=== PATIENT | female | born 1985 | race Caucasian/White ===

== ENCOUNTER 2022-02-17 20:38 | Observation (INO) | payer OTHER ==
[2022-02-17] MEDS ORDERED: SODIUM CHLORIDE 0.9% 1,000 ML IV STA (21:34)
--- NOTE | 2022-02-17 21:34 | ED ---
General Adult HPI - General Chief complaint: Headache Stated complaint: Blurred vision,Headache Time Seen by Provider: 02/17/22 21:23 Source: patient Mode of arrival: ambulatory - History of Present Illness Initial comments: Birdie is a 36 yo F with history of an unprovoked DVT 2 years ago. Patient presents the ER today with concern of strokelike symptoms. Patient reports that around noon today she didn't feel her vision closing that she lost her peripheral vision she was sitting down scrolling Facebook when she began to feel she could understand what she was supposed to be reading. She tried to explain it to her but was having some trouble with word finding. She forgot the word for the sport [employer] which is something that her and her play every weekend. She felt like she had numbness in her right hand and the right side of her face. After that she developed a little bit of a headache in the left side of her head, she took some aspirin the headache seemed to improve. - Related Data Allergies Allergy/AdvReac Type Severity Reaction Status Date / Time No Known Allergies Allergy Verified 02/17/22 21:20 Review of Systems ROS Statement: Those systems with pertinent positive or pertinent negative responses have been documented in the HPI. ROS Other: All systems not noted in ROS Statement are negative. Past Medical History Additional Past Medical History / Comment(s): hx of blood clot right lower leg. History of Any Multi-Drug Resistant Organisms: None Reported Past Surgical History: No Surgical Hx Reported Past Psychological History: Depression Smoking Status: Never smoker Past Alcohol Use History: None Reported Past Drug Use History: None Reported General Exam - General Exam Comments Initial Comments: Physical Exam GENERAL: Patient is well-developed and well-nourished. Patient is nontoxic and well-hydrated and is in no distress. HENT: Normocephalic, Atraumatic. EYES: PERRL, EOMI PULMONARY: Unlabored respirations. No audible rales rhonchi or wheezing was noted. CARDIOVASCULAR: There is a regular rate and rhythm without any murmurs gallops or rubs. ABDOMEN: Soft and nontender with normal bowel sounds. SKIN: Skin is clear with no lesions or rashes and otherwise unremarkable. : Deferred NEUROLOGIC: CN II-XII grossly intact No weakness in extremities Patient is alert and oriented x3. Moving all extremities spontaneously MUSCULOSKELETAL: Normal extremities with adequate strength and full range of motion. No lower extremity swelling or edema. No calf tenderness. PSYCHIATRIC: Normal psychiatric evaluation. Course Vital Signs 02/17/22 21:15 Temperature 98.3 F Pulse Rate 91 Respiratory 18 Rate Blood Pressure 146/87 O2 Sat by Pulse 99 Oximetry EKG Findings - EKG Comments: EKG Findings:: EKG was obtained as part of the stroke workup, EKG obtained at 2233 rate 64 rhythm sinus normal axis normal intervals no acute ST elevations or depressions no evidence of ischemia or infarction or pathologic arrhythmia Medical Decision Making - Medical Decision Making Patient was seen and evaluated, history is obtained from patient, patient with TIA like symptoms, left-sided headache, right-sided facial numbness, right hand numbness, were finding difficulty Symptoms are resolved prior to arrival CT CTA are unremarkable Patient will be admitted for TIA workup and evaluation by neurology - Lab Data Result diagrams: 02/17/22 21:53 Lab Results 02/17/22 02/17/22 Range/Units 21:53 21:53 WBC 8.4 (3.8-10.6) k/uL RBC 4.83 (3.80-5.40) m/uL Hgb 14.0 (11.4-16.0) gm/dL Hct 43.2 (34.0-46.0) % MCV 89.5 (80.0-100.0) fL MCH 29.1 (25.0-35.0) pg MCHC 32.5 (31.0-37.0) g/dL RDW 12.7 (11.5-15.5) % Plt Count 245 (150-450) k/uL MPV 8.3 Neutrophils % 57 % Lymphocytes % 34 % Monocytes % 5 % Eosinophils % 2 % Basophils % 1 % Neutrophils # 4.8 (1.3-7.7) k/uL Lymphocytes # 2.9 (1.0-4.8) k/uL Monocytes # 0.4 (0-1.0) k/uL Eosinophils # 0.1 (0-0.7) k/uL Basophils # 0.1 (0-0.2) k/uL PT 10.1 (9.0-12.0) sec INR 0.9 (<1.2) APTT 23.8 (22.0-30.0) sec Disposition Clinical Impression: TIA (transient ischemic attack) Disposition: ADMITTED IP TO THIS HOSP Condition: Stable Referrals: None,Stated [Primary Care Provider] - 1-2 days
[2022-02-17 22:01] LABS: Basophils # (A) 0.1 k/uL (0-0.2); Basophils % (A) 1 %; Eosinophils # (A) 0.1 k/uL (0-0.7); Eosinophils % (A) 2 %; HCT 43.2 % (34.0-46.0); Lymphocytes # (A) 2.9 k/uL (1.0-4.8); Lymphocytes % (A) 34 %; MCH 29.1 pg (25.0-35.0); MCHC 32.5 g/dL (31.0-37.0); MCV 89.5 fL (80.0-100.0); Mean Platelet Volume 8.3; Monocytes # (A) 0.4 k/uL (0-1.0); Monocytes % (A) 5 %; Neutrophils # (A) 4.8 k/uL (1.3-7.7); Neutrophils % (A) 57 %; Platelet Count 245 k/uL (150-450); RBC 4.83 m/uL (3.80-5.40); RDW 12.7 % (11.5-15.5); WBC 8.4 k/uL (3.8-10.6)
[2022-02-17 22:26] LABS: INR 0.9 (<1.2); Partial Thromboplastin Time 23.8 sec (22.0-30.0); Prothrombin Time 10.1 sec (9.0-12.0)
--- NOTE | 2022-02-17 22:27 | CT ---
EXAMINATION TYPE: CT brain wo con DATE OF EXAM: 02/17/2022 COMPARISON: None HISTORY: headache CT DLP: 1058 mGycm Automated exposure control for dose reduction was used. Ventricles have normal size. There is no mass effect or midline shift. No sign of intracranial hemorr ruthie. Calvarium is intact. There is normal aeration of the mastoid sinuses. IMPRESSION: Normal unenhanced head CT scan.
--- NOTE | 2022-02-17 22:28 | XR ---
EXAMINATION TYPE: XR chest 2V DATE OF EXAM: 02/17/2022 COMPARISON: NONE HISTORY: Altered mental status TECHNIQUE: 2 views FINDINGS: Heart and mediastinum are normal. Lungs are clear. Diaphragm is normal. Bony thorax appears normal. IMPRESSION: Normal chest.
--- NOTE | 2022-02-17 22:41 | CT ---
EXAMINATION TYPE: CT angio head neck DATE OF EXAM: 02/17/2022 COMPARISON: None HISTORY: ams CT DLP: 540.2 mGycm Automated exposure control for dose reduction was used. CONTRAST: Performed with IV Contrast, patient injected with 65 mL of Isovue 370. Images obtained from the aortic arch to the vertex of the brain with IV contrast. There are Three-D postprocessed images. There is normal branching pattern of the great vessels on the aortic arch. There is bilateral arteria l flow in the subclavian arteries. There is arterial flow in the common internal and external carotid arteries bilaterally. There is arterial flow in both vertebral arteries. There is arterial flow in t he vertebral basilar artery system. There is wide patency of the carotid artery bifurcations. No evid ence of stenosis. No evidence of carotid or vertebral artery aneurysm or dissection. There is arterial flow in the anterior middle and posterior cerebral arteries. No mass effect. No jose dence of intracranial aneurysm or neovascularity. No evidence of intracranial arterial stenosis. Ther e is normal enhancement of the venous sinuses. IMPRESSION: Negative CT angiogram of the brain. Negative CT angiogram of the neck..
--- NOTE | 2022-02-17 23:23 | P.HPIM ---
History of Present Illness H&P Date: 02/17/22 Chief Complaint: Blurred vision This is a 36-year-old white female who was on Facebook earlier today 1 she noted that her vision was different. She had partial vision loss associated with blurriness. She denies dizziness or loss of consciousness. She has been complaining of intermittent headaches lately. She denies subjective fever or chills. She was forgetful after the event but currently she is back to baseline. There was no reported nausea or vomiting. No reported fever. This has never happened to her before. She denies history of migraines. At the time of examination patient is in bed, she does not appear to be in distress. Patient's is at bedside. Review of Systems 10 systems reviewed, pertinent positive and negative findings as in HPI. No chest pain, no nausea or vomiting Past Medical History Additional Past Medical History / Comment(s): hx of blood clot right lower leg. History of Any Multi-Drug Resistant Organisms: None Reported Past Surgical History: No Surgical Hx Reported Past Psychological History: Depression Smoking Status: Never smoker Past Alcohol Use History: None Reported Past Drug Use History: None Reported Medications and Allergies Allergies Allergy/AdvReac Type Severity Reaction Status Date / Time No Known Allergies Allergy Verified 02/17/22 21:20 Physical Exam Vitals: Vital Signs Temp Pulse Resp BP Pulse Ox 02/17/22 21:15 98.3 F 91 18 146/87 99 Intake and Output 02/17/22 02/17/22 02/18/22 14:59 22:59 06:59 Other: Weight 83.461 kg Constitutional: No acute distress, conversant, pleasant Eyes: Anicteric sclerae, moist conjunctiva, no lid-lag, PERRLA ENMT: NC/AT,Oropharynx clear, no erythema, exudates Neck:Supple, FROM, no masses, or JVD, No carotid bruits; No thyromegaly Lungs: Clear to auscultation, Clear to percussion, Normal respiratory effort, no accessory muscle use Cardiovascular: Heart regular in rate and rhythm, No murmurs, gallops, or rubs no peripheral edema Abdominal: Soft Nontender, non distended, no guarding, no rebound or rigidity, Normoactive bowel sounds No hepatomegaly, No splenomegaly, No palpable mass No abdominal wall hernia noted Skin: Normal temperature, tone, texture, turgor, No induration No subcutaneous nodules, No rash, lesions, No ulcers Extremities:No digital cyanosis No clubbing, Pedal pulses intact and symmetrical Radial pulses intact and symmetrical Normal gait and station, No calf tenderness Psychiatric: Alert and oriented to person, place and time, Appropriate affect Intact judgement Neuro: Muscles Strength 5/5 in all 4 extremities, Sensation to light touch grossly present throughout, Cranial nerves II-XII grossly intact. No focal sensory deficits Results CBC & Chem 7: 02/17/22 21:53 Assessment and Plan Plan: 1. Left sided transient blade revision and visual disturbances of unknown significance possibly related to migraine: Supportive care, brain CT/CTA negative for acute findings. Neurology consultation. 2. History of DVT in the past: Not on anticoagulant admission. 3. Obesity: BMI 33.7 4. Tobacco abuse/dependence without evidence of withdrawal: Nicotine patch as indicated. Observation Disposition: Home in 1-2 days.
[2022-02-17] MEDS ORDERED: NALOXONE 0.4 MG/ML 1 ML VIAL IV PRN (23:27)
[2022-02-18 00:03] LABS: ALT 18 U/L (4-34); AST 22 U/L (14-36); African American GFR (CKD) >90 (>60 ml/min/1.73 sqM); Albumin 4.1 g/dL (3.5-5.0); Alkaline Phosphatase 97 U/L (38-126); Anion Gap 7 mmol/L; Blood Urea Nitrogen 14 mg/dL (7-17); Calcium 9.4 mg/dL (8.4-10.2); Carbon Dioxide 26 mmol/L (22-30); Chloride 107 mmol/L (98-107); Glucose 99 mg/dL (74-99); Non-African American GFR(CKD) >90 (>60 ml/min/1.73 sqM); Potassium 3.6 mmol/L (3.5-5.1); Sodium 140 mmol/L (137-145); Total Bilirubin 0.4 mg/dL (0.2-1.3); Total Protein 6.7 g/dL (6.3-8.2)
--- NOTE | 2022-02-18 11:29 | P.CNNES ---
History of Present Illness Consult date: 02/18/22 Requesting physician: Randa Farnsworth Reason for Consult: TIA symptoms History of Present Illness: This is a 36-year-old right-handed woman with history of DVT (left leg) about two years ago, tobacco use who presented emergency department because of visual changes, difficulty getting words out and numbness right side. It seems that yesterday, patient stated that the at 12 PM she noticed that she's having visual defect over the right lateral field and the episode lasted between 10-15 minutes. Then after that she had an episode of difficulty reading while she was a looking at [employer] . And the episode lasted also couple minutes and she noticed numbness over right side of the lips as well as face saw him in the right upper extremity also resolved entire episode that that she had the change was between 12 and the afternoon yesterday to 1:30 in afternoon. Afterwards she noticed that she's having headache over the left occipital region and initially as she felt was probably 7 and felt was that more nagging pain she had some mild photophobia but denies any photophobia and nausea or vomiting. She currently states the headache is 2/10. She denies any history of migraines in the past. She denies of any stroke or TIA in the past. She smokes about 3-5 cigarettes a day and in the past used to smoke 1 pack a day at. She denies of any illicit drug use or alcohol use. She uses marijuana as recreational. She did have a history of left DVT about 2 years ago but she was not on any blood thinners and did not follow up as an outpatient for further investigation. She denied being on any blood thinners, antiplatelet the or any statin. In the past was not on any control pills for her DVT and did not sit prolonged position leading to DVT. Denies any hypercoagulable the in the family. There is questionable mother having stroke. Denies any family history of multiple sclerosis. Of note she wakes up and she has like numbness in the wrist-hand region and she has to shake her hands. Some other workup in our facility consisted of: CBC with differential and chemistry panel is unremarkable. PT, PTT and INR is within normal limits. CT of the head is reported as normal on and has had computed tomography scan. CT angiography of the head and neck was reported as negative EKG is reported as sinus rhythm with sinus arrhythmia. Normal EKG. Review of Systems Review of system: The 12 point system was reviewed and apparent positive and negative per HPI. Past Medical History Additional Past Medical History / Comment(s): hx of blood clot right lower leg. History of Any Multi-Drug Resistant Organisms: None Reported Past Surgical History: No Surgical Hx Reported Past Anesthesia/Blood Transfusion Reactions: No Reported Reaction Past Psychological History: Depression Smoking Status: Current some day smoker Past Alcohol Use History: None Reported Past Drug Use History: None Reported Medications and Allergies Allergies Allergy/AdvReac Type Severity Reaction Status Date / Time No Known Allergies Allergy Verified 02/17/22 21:20 Physical Examination - Vital Signs Vital Signs: Vital Signs Temp Pulse Pulse Resp BP BP Pulse Ox 02/18/22 07:00 98 F 61 18 105/70 100 02/18/22 02:00 98.1 F 77 17 98/64 100 02/17/22 23:56 72 16 111/72 02/17/22 21:15 98.3 F 91 18 146/87 99 Intake and Output 02/17/22 02/18/22 02/18/22 22:59 06:59 14:59 Other: # Voids 1 Weight 83.461 kg 83.461 kg GENERAL: The patient is lying in bed and is not in acute distress. CHEST: The heart rate is regular rate rhythm. No murmurs to auscultation. LUNG: Clear to auscultation bilaterally no wheezing noted throughout. Not la bored breathing. ABDOMEN/GI: Bowel sounds present in all 4 quadrants. No tenderness to palpation throughout. NEUROLOGICAL: Higher mental function: The patient is awake, alert, oriented to self, place and time. Patient is following commands. No aphasia and no neglect. Cranial nerves: The pupils are round, equal and reactive to light and accommodation. Visual perera are full to confrontation throughout. Extraocular movement is intact no nystagmus is noted. Facial sensation is normal to touch throughout. The facial strength is normal throughout. Hearing is normal bilaterally to hand rub. Tongue is midline and moved [id number] without any difficulty. No dysarthria is noted. Shoulder shrug is normal bilaterally. Motor:Gait is normal. The strength is 5 over 5 throughout. Normal tone and bulk. Cerebellum: Normal finger to nose heel to teixeira bilaterally. Sensation: Sensation is normal to touch throughout. Reflexes (right/left): 3+ brachioradialis and patellar bilaterally. Otherwise 2+throughout. Plantars are downgoing bilaterally. Results - Laboratory Findings CBC and BMP: 02/17/22 21:53 02/17/22 21:53 Assessment and Plan Assessment: Transient episode of visual change, difficulty to comprehend when she was reading, right face/upper extremity numbness: Seems likely acute Transient Ischemic Attack (especially with episode of left DVT and tobacco use). Rule out any underlying hypercoagulable/genetic History of DVT Possibly underlying carpal tunnel bilaterally Tobacco use Plan: I placed the patient on aspirin 81 mg and plavix 75mg daily. Vision to be on dual antiplatelets for 21 days and after 21 days to be only on aspirin for secondary stroke prophylaxis. Started the patient on Lipitor 40 mg daily at bedtime for secondary stroke prophylaxis. Ordered 2-D echo with bubble study. Recommend MRI of the brain as well as cervical spine with and without. Reason for cervical spine is patient has hyperreflexia to rule out any demyelinating disease which seems unlikely from the history. I ordered hemoglobin A1c, vitamin B12, folate, lipid panel I highly recommend hypercoagulable workup for young stroke as an outpatient. Recommend the patient to follow up with roofer as an outpatient. Placed the patient on cardiac monitoring Every 4 hours neuro checks Patient was counseled on tobacco cessation for 3 minutes. We'll defer the rest of the medical management to primary team For DVT prophylaxis start the patient on subcu heparin 5000 units every 8 hours Recommend the patient to follow-up with a neurologist as an outpatient within 1- 2 weeks The plan was discussed with the patient and her primary team. Thank you for the consultation. Dr. Wright will start neurological service tomorrow AM. Cheko Flores M.D. Neuro-hospital Time with Patient: Greater than 30
[2022-02-18 11:56] LABS: Basophils % (A) 1 %; Eosinophils # (A) 0.1 k/uL (0-0.7); Eosinophils % (A) 2 %; HCT 42.1 % (34.0-46.0); HGB 13.9 gm/dL (11.4-16.0); Lymphocytes # (A) 2.3 k/uL (1.0-4.8); Lymphocytes % (A) 42 %; MCH 29.7 pg (25.0-35.0); Mean Platelet Volume 8.3; Monocytes # (A) 0.3 k/uL (0-1.0); Monocytes % (A) 5 %; Neutrophils # (A) 2.7 k/uL (1.3-7.7); Neutrophils % (A) 49 %; Platelet Count 257 k/uL (150-450); RBC 4.68 m/uL (3.80-5.40); RDW 13.3 % (11.5-15.5); WBC 5.6 k/uL (3.8-10.6)
[2022-02-18 12:03] LABS: ALT 17 U/L (4-34); AST 19 U/L (14-36); African American GFR (CKD) >90 (>60 ml/min/1.73 sqM); Albumin/Globulin Ratio 1.5; Alkaline Phosphatase 89 U/L (38-126); Anion Gap 9 mmol/L; Blood Urea Nitrogen 9 mg/dL (7-17); Calcium 8.8 mg/dL (8.4-10.2); Carbon Dioxide 22 mmol/L (22-30); Chloride 107 mmol/L (98-107); Globulin 2.6 g/dL; Glucose 99 mg/dL (74-99); Non-African American GFR(CKD) >90 (>60 ml/min/1.73 sqM); Potassium 4.3 mmol/L (3.5-5.1); Sodium 138 mmol/L (137-145); Total Bilirubin 0.5 mg/dL (0.2-1.3); Total Protein 6.6 g/dL (6.3-8.2)
--- NOTE | 2022-02-18 12:05 | P.PN ---
Subjective Progress Note Date: 02/18/22 Hospital course: Patient is a 36-year-old female with a past medical history of DVT not on anticoagulation. She presented to the emergency department on 02/17/22 secondary to reports of having a loss of right-sided peripheral vision accompanied by slight blurred vision. Patient reports she went to the restroom and removed her contact facing some drops in her eye and vision resolved after approximately 10 minutes. Patient reports during this time she also noted having a headache to left occipital region and short while later began feeling right hand tingling and numbness and was on Facebook and suddenly could not read or make sense of what she was reading. Patient reports initial symptoms presented around 12 PM and were completely resolved by 1:30 PM with the exception of left is a little headache which remains as reported dull pain. Patient currently back to baseline again with the exception of the headache. In the emergency department, patient underwent full evaluation. CT head was negative for acute process. CTA head and neck were also negative. CBC, coags, and CMP were all unremarkable. Troponin also negative at less than 0.012. An EKG was completed revealing normal sinus rhythm at 64 bpm with no noted T-wave or ST abnormalities showing no signs of acute ischemia. The patient was admitted under our services for overnight observation and neurology was consulted. Patient remains at baseline and still reports dull occipital headache with no other complaints at this time. No neurological deficits noted at this time. Physical exam: Vital signs reviewed and stable. General: Nontoxic, no distress and appears stated age. Derm: Skin warm and dry, normal coloration for ethnicity. Head: Atraumatic, normocephalic and symmetric. Eyes: EOMs intact, no lid lag, and anicteric sclera Mouth: no lip lesions, mucus membranes moist Cardiovascular: regular rate and rhythm with normal S1S2, no murmur, positive posterior tibial pulses bilaterally, and cap refill < 2 seconds. Lungs: Respirations even, regular, and unlabored on room air. Lungs CTA bilaterally, no rhonchi, no rales, no wheezing, and no accessory muscle usage. Abdominal: soft, nontender to palpation, no guarding, no appreciable organomegaly Ext: ROM intact. No gross muscle atrophy, no edema, no contractures Neuro: Speech clear, face symmetrical and CN II-XII grossly intact with no noted focal neuro deficits Psych: Alert and oriented to person, place, time, and situation. Appropriate and pleasant affect. Assessment and Plan of Care: Transient vision changes, with reports of right-sided peripheral vision loss accompanied by blurred vision. Rule out TIA versus atypical migraine. -CT head negative -CTA head and neck negative -MRI to be completed -Neurology following, started patient on aspirin and Plavix -Urine hCG to be completed prior to initiating Plavix -Neuro checks to continue every 4 hours. History of a DVT -Patient reports being diagnosed with left lower extremity DVT 2 years ago, not on anticoagulant -DVT prophylaxis with heparin Nicotine dependence -Recommend smoking cessation. CODE STATUS: Full code DVT prophylaxis: heparin Discussed with: patient, RN, and neurology Anticipated discharge date: likely tomorrow, pending MRI and echo to be c ompleted Anticipated discharge place: home A total of 35 minutes was spent on the care of this complex patient more than 50% of the time was spent in counseling and care coordination. I reviewed the documentation as provided by the KRISTINA above, who is the original author of this note. I agree with the documented assessment and plan, with the following changes: none Objective - Vital Signs Vital signs: Vital Signs Temp 98.1 F 02/18/22 02:00 Pulse 77 02/18/22 02:00 Resp 17 02/18/22 02:00 BP 98/64 02/18/22 02:00 Pulse Ox 100 02/18/22 02:00 FiO2 Intake & Output 02/17/22 02/18/22 02/18/22 18:59 06:59 18:59 Weight 83.461 kg Other: # Voids 1 - Labs CBC & Chem 7: 02/19/22 05:34 02/19/22 05:34
[2022-02-18] MEDS: ASPIRIN 81 MG PO SCH (12:33)
[2022-02-18] MEDS: HEPARIN SODIUM,PORCINE/PF 5,000 UNIT/0.5 ML SYRINGE SQ SCH ×2 (12:33→18:11)
[2022-02-18] MEDS: CLOPIDOGREL 75 MG TAB PO SCH (12:33)
[2022-02-18 17:52] LABS: LDL Cholesterol,Calculated 103.3 mg/dL (0.0-131.0); VLDL Calculation 18.88 mg/dL (5.00-40.00)
[2022-02-18] MEDS ORDERED: ATORVASTATIN 40 MG TAB PO SCH (21:00)
[2022-02-19] MEDS: HEPARIN SODIUM,PORCINE/PF 5,000 UNIT/0.5 ML SYRINGE SQ SCH ×2 (00:02→08:13)
[2022-02-19] MEDS: ASPIRIN 81 MG PO SCH (08:12)
[2022-02-19] MEDS: CLOPIDOGREL 75 MG TAB PO SCH (08:12)
[2022-02-19 08:58] LABS: Basophils # (A) 0.04 X 10*3/uL (0.00-0.10); Basophils % (A) 0.7 %; Eosinophils # (A) 0.13 X 10*3/uL (0.04-0.35); Eosinophils % (A) 2.2 %; HCT 39.3 % (37.2-46.3); HGB 12.7 g/dL (12.0-15.0); Immature Grans, Automated 0.2 %; Lymphocytes # (A) 2.84 X 10*3/uL (0.90-5.00); Lymphocytes % (A) 47.6 %; MCH 29.1 pg (27.0-32.0); MCHC 32.3 g/dL (32.0-37.0); MCV 90.1 fL (80.0-97.0); Mean Platelet Volume 11.3 fL (9.5-12.2); Monocytes # (A) 0.43 X 10*3/uL (0.20-1.00); Monocytes % (A) 7.2 %; NRBC Per 100 WBC 0 /100 WBCS (0.0-0.0); Neutrophils # (A) 2.52 X 10*3/uL (1.80-7.70); Neutrophils % (A) 42.1 %; Platelet Count 225 X 10*3/uL (140-440); RBC 4.36 X 10*6/uL (4.10-5.20); RDW 13.2 % (11.5-14.5); WBC 5.97 X 10*3/uL (4.50-10.00)
[2022-02-19 09:07] LABS: ALT 15 U/L (8-44); AST 11 U/L (13-35); African American GFR (CKD) 111.5 (60.0-200.0); Albumin 3.7 g/dL (3.8-4.9); Albumin/Globulin Ratio 1.85 (1.60-3.17); Alkaline Phosphatase 89 U/L (41-126); BUN/Creat Ratio 11.13 Ratio (12.00-20.00); Blood Urea Nitrogen 8.9 mg/dL (9.0-27.0); Calcium 8.7 mg/dL (8.7-10.3); Carbon Dioxide 23.8 mmol/L (20.0-27.5); Chloride 105 mmol/L (96-109); Glucose 96 mg/dL (70-110); Non-African American GFR(CKD) 96.2 (60.0-200.0); Sodium 138 mmol/L (135-145); Total Bilirubin <0.15 mg/dL (0.30-1.20); Total Protein 5.7 g/dL (6.2-8.2)
[2022-02-19 09:12] VITALS: BP 106/73; PULSE 63; RESP 18; TEMP 97.7
--- NOTE | 2022-02-19 10:06 | CA ---
Transthoracic Echo Report Name: Elias December Age: 36 Gender: F : 1985 Exam Date: 02/19/2022 08:05 Exam Location: [facility] Ht (in): 62 Wt (lb): 184 Ordering Physician: Cheko Flores MD Attending/Referring Phys: Rug Measurer Lacie Marina RDCS Procedure CPT: Indications: TIA. Do with bubble study Cardiac Hx: Hx of DVT, smoker Technical Quality: Fair Contrast 1: Agitated Saline Total Dose (mL): 8 Contrast 2: Total Dose (mL): MEASUREMENTS (Male / Female) Normal Values 2D ECHO LV Diastolic Diameter PLAX 4.3 cm 4.2 - 5.9 / 3.9 - 5.3 cm LV Systolic Diameter PLAX 2.7 cm IVS Diastolic Thickness 0.9 cm 0.6 - 1.0 / 0.6 - 0.9 cm LVPW Diastolic Thickness 1.1 cm 0.6 - 1.0 / 0.6 - 0.9 cm LV Relative Wall Thickness 0.5 RV Internal Dim ED PLAX 3.1 cm LA Systolic Diameter LX 3.0 cm 3.0 - 4.0 / 2.7 - 3.8 cm LA Volume 30.0 cm??? 18 - 58 / 22 - 52 cm??? M-MODE Aortic Root Diameter MM 2.5 cm MV E Point Septal Separation 0.2 cm AV Cusp Separation MM 1.6 cm DOPPLER AV Peak Velocity 137.5 cm/s AV Peak Gradient 7.6 mmHg MV Area PHT 4.3 cm??? Mitral E Point Velocity 129.5 cm/s Mitral A Point Velocity 52.9 cm/s Mitral E to A Ratio 2.4 MV Deceleration Time 175.5 ms MV E' Velocity 12.2 cm/s Mitral E to MV E' Ratio 10.6 TR Peak Velocity 228.5 cm/s TR Peak Gradient 20.9 mmHg Right Ventricular Systolic Press 25.9 mmHg FINDINGS Left Ventricle Left ventricular ejection fraction is estimated at 55-60 %. Left ventricular cavity size normal. Left ventricular wall thickness normal. Right Ventricle Normal right ventricular size. Right ventricular systolic pressure within normal limits. Right Atrium Normal right atrial size. Left Atrium Normal left atrial size. No evidence for an atrial septal defect. Negative saline bubbles study no shunt noted Mitral Valve Structurally normal mitral valve. No mitral stenosis, regurgitation or prolapse. Aortic Valve Trileaflet aortic valve. No aortic valve stenosis or regurgitation. Tricuspid Valve Mild tricuspid regurgitation. Pulmonic Valve Mild pulmonic regurgitation. Pericardium Normal pericardium. No pericardial effusion. Aorta Normal size aortic root and proximal ascending aorta. CONCLUSIONS Normal LV size and systolic function. No significant abnormality on the Doppler exam. No pericardial effusion Previewed by: Dr. Frank Vital MD (Electronically Signed) Final Date: 19 February 2022 10:06
--- NOTE | 2022-02-19 14:38 | P.DS ---
Providers Date of admission: 02/17/22 23:27 Expected date of discharge: 02/19/22 Attending physician: Mamadou Woods MD Consults: 02/17/22 23:29 Consult Physician Stat Consulting Provider: Cheko Flores Consult Reason/Comments: TIA symptoms Do you want consulting provider notified?: Yes, Notify in am Primary care physician: Stated None Hospital Course: Discharge Diagnosis: Transient vision changes, with reports of right-sided peripheral vision loss accompanied by blurred vision. Likely TIA versus complex migraine, patient unable to complete MRI at this time secondary to IUD placement. Patient was started on aspirin, Plavix, and atorvastatin and follow up outpatient with neurology. History of a DVT Nicotine dependence. Recommend smoking cessation. Hospital Course: Patient is a 36-year-old female with a past medical history of DVT not on anticoagulation. She presented to the emergency department on 02/17/22 secondary to reports of having a loss of right-sided peripheral vision accompanied by slight blurred vision. Patient reports she went to the restroom and removed her contact facing some drops in her eye and vision resolved after approximately 10 minutes. Patient reports during this time she also noted having a headache to left occipital region and short while later began feeling right hand tingling and numbness and was on Facebook and suddenly could not read or make sense of what she was reading. Patient reports initial symptoms presented around 12 PM and were completely resolved by 1:30 PM with the exception of left is a little headache which remains as reported dull pain. Patient currently back to baseline again with the exception of the headache. In the emergency department, patient underwent full evaluation. CT head was negative for acute process. CTA head and neck were also negative. CBC, coags, and CMP were all unremarkable. Troponin also negative at less than 0.012. An EKG was completed revealing normal sinus rhythm at 64 bpm with no noted T-wave or ST abnormalities showing no signs of acute ischemia. The patient was admitted under our services for observation and neurology was consulted. Patient underwent 2 night stay in the hospital and reports resolution of all previously reported neurological symptoms including her headache. Urine hCG was completed negative for . Patient started on aspirin, Plavix, and atorvastatin. Patient underwent an echocardiogram which revealed normal EF of 55-60% with no reported structural or valvular abnormalities. Lipid profile was unremarkable. Patient was scheduled for MRI, however patient forgot that she had an IUD and patient didn't realize she had an IUD and cannot complete MRI. Patient requesting discharge at this time. Medically patient is stable for discharge. Prescription sent for Plavix, aspirin, and atorvastatin started by neurology. Patient to follow up outpatient with neurologist in his office as discussed as TIA versus migraine versus demyelinating condition has not fully been ruled out secondary to inability to undergo MRI at this time. Physical exam: Vital signs reviewed and stable. General: Nontoxic, no distress and appears stated age. Derm: Skin warm and dry, normal coloration for ethnicity. Head: Atraumatic, normocephalic and symmetric. Eyes: EOMs intact, no lid lag, and anicteric sclera Mouth: no lip lesions, mucus membranes moist Cardiovascular: regular rate and rhythm with normal S1S2, no murmur, positive posterior tibial pulses bilaterally, and cap refill < 2 seconds. Lungs: Respirations even, regular, and unlabored on room air. Lungs CTA bilaterally, no rhonchi, no rales, no wheezing, and no accessory muscle usage. Abdominal: soft, nontender to palpation, no guarding, no appreciable organomegaly Ext: ROM intact. No gross muscle atrophy, no edema, no contractures Neuro: Speech clear, face symmetrical and CN II-XII grossly intact with no noted focal neuro deficits Psych: Alert and oriented to person, place, time, and situation. Appropriate and pleasant affect. A total of 31 minutes of time were spent preparing this complex discharge summary. Pt was discharged on 02/19/22 at 2:28 PM. I reviewed the documentation as provided by the KRISTINA above, who is the original author of this note. I agree with the documented assessment and plan, with the following changes: none Patient Condition at Discharge: Stable Plan - Discharge Summary Discharge Rx Participant: No New Discharge Prescriptions: New Aspirin 81 mg PO DAILY 30 Days #30 tab Atorvastatin [Lipitor] 40 mg PO HS 30 Days #30 tab Clopidogrel [Plavix] 75 mg PO DAILY 21 Days #21 tab Discharge Medication List Aspirin 81 mg PO DAILY 30 Days #30 tab 02/19/22 [Rx] Atorvastatin [Lipitor] 40 mg PO HS 30 Days #30 tab 02/19/22 [Rx] Clopidogrel [Plavix] 75 mg PO DAILY 21 Days #21 tab 02/19/22 [Rx] Follow up Appointment(s)/Referral(s): Kevin Flores DO [Doctor of Osteopathic Medicine] - 1 Week Benito Chu [STAFF PHYSICIAN] - 1 Week Patient Instructions/Handouts: Transient Ischemic Attack (DC) Activity/Diet/Wound Care/Special Instructions: Activity: As tolerated. Diet: Heart healthy and carb consistent diet. Avoid salts, or foods with hidden salts such as canned or boxed foods and frozen dinners. Extra salt makes your heart work harder and traps the fluid in your body for longer. Special Instructions: Take all of your medications as directed and remember to keep all of your doctor's appointments and follow-up as needed. As we discussed with you and is important to continue with aspirin and Plavix for the next 21 days and then you may stop Plavix and continue with aspirin until further instructed by her neurologist. He will need to follow-up with Dr. [facility] [id number] [place] [address] Recommend total smoking cessation. Thank you for allowing us to participate in your care, it was truly a pleasure h aving you for our patient!!! Discharge Disposition: HOME SELF-CARE
--- NOTE | 2022-02-20 10:30 | P.PN ---
Subjective Progress Note Date: 02/19/22 Patient was seen for a follow-up. Patient initially seen by Dr. Cheko Flores. Please refer to his note for details. Patient came with an episode of some visual disturbance, numbness of the right side of face, tongue and in the hand,. Also she could not read and had some word finding difficulty at that time. Symptoms resolved in 1.5 hours (from noon until 1:30 PM), but then she had a headache involving the left occipital region, that persisted for a day. The headache has just resolved. She feels fine now. Denies any personal or family history of migraines. She does have nonmedicated IUD. Patient has history of DVT in the left leg 2 years ago. Objective - Vital Signs Vital signs: Vital Signs Temp 97.7 F 02/19/22 07:00 Pulse 63 02/19/22 07:00 Resp 18 02/19/22 07:00 BP 106/73 02/19/22 07:00 Pulse Ox 100 02/19/22 07:00 FiO2 Intake & Output 02/18/22 02/19/22 02/19/22 18:59 06:59 18:59 Other: # Voids 2 1 - Exam Completely normal neurological examination. Mental status, speech and language functions, cranial nerves are normal. Muscle strength normal. - Labs CBC & Chem 7: 02/19/22 05:34 02/19/22 05:34 Labs: Abnormal Lab Results - Last 24 Hours (Table) 02/19/22 Range/Units 05:34 Anion Gap 9.20 L (10.00-18.00) mmol/L BUN 8.9 L (9.0-27.0) mg/dL BUN/Creatinine Ratio 11.13 L (12.00-20.00) Ratio Total Bilirubin <0.15 L (0.30-1.20) mg/dL AST 11 L (13-35) U/L Total Protein 5.7 L (6.2-8.2) g/dL Albumin 3.7 L (3.8-4.9) g/dL Assessment and Plan Assessment: Transient episode of visual change, difficulty to comprehend when she was reading, right face/upper extremity numbness: Symptoms lasted for about 1.5 hours followed by a left occipital headache. Differential diagnosis is between TIA versus complex migraine. History of DVT Possibly underlying carpal tunnel bilaterally Tobacco use Plan: * Dr. Cheko Flores has placed the patient on aspirin 81 mg and plavix 75mg daily. Patient will stay on dual antiplatelets for 21 days and after 21 days to be o nly on aspirin for secondary stroke prophylaxis. He also started the patient on Lipitor 40 mg daily at bedtime for secondary stroke prophylaxis. * 2-D echo with bubble study revealed normal left-ventricular size and systolic function. Negative saline bubble study, no shunt noted. Normal left atrial size. * MRI of the brain and cervical spine could not be performed because patient has IUD. This has to be done as an outpatient. Patient will follow up with Dr. Cheko Flores in his neurology office and arrange MRI as an outpatient. * Hemoglobin A1c 5.2 * Lipid panel with cholesterol 171, LDL 103, HDL 48 and triglycerides 94. * Vitamin B12 607, folate 13.5 and TSH 1.93, all normal. * Patient will follow up with hematology regarding hypercoagulable workup. * Recommend complete tobacco cessation. * Neurologically clear for discharge.
== END 2022-02-19 16:14 | disposition home or self-care (01) ==
LOC: EC 20:38 → 6NMEDSUR 23:27
PROVIDERS: ADMIT Internal Medicine; ATTEND Internal Medicine
DX: G43.809 Other migraine, not intractable, without status migrainosus (principal); H54.7 Unspecified visual loss; H53.8 Other visual disturbances; R29.818 Other symptoms and signs involving the nervous system; F17.210 Nicotine dependence, cigarettes, uncomplicated; E66.9 Obesity, unspecified; Z68.33 Body mass index [BMI] 33.0-33.9, adult; F32.A Depression, unspecified; Z71.6 Tobacco abuse counseling; Z71.3 Dietary counseling and surveillance; Z97.5 Presence of (intrauterine) contraceptive device; Z86.718 Personal history of other venous thrombosis and embolism
CPT/HCPCS: 99285; 96361; 96372 ×2; 96360; 36415; 93005; 93306; 80053 ×3; 80061; 84443; 82607; 82746; 84484; 85025 ×3; 85610; 85730; 81025; 83036; 71046; 70496; 70450; 70498; G0378 ×2; Q9967; J1644 ×2

== ENCOUNTER → 2022-04-05 | Outpatient (CLI) | payer OTHER | END | disposition home or self-care (01) | LOC: LABWHC1 12:49 | PROVIDERS: ATTEND Family Medicine | DX: M13.0 Polyarthritis, unspecified (principal) | CPT/HCPCS: 36415; 82550 ==

== ENCOUNTER 2022-06-03 13:50 | Emergency (ER) | payer OTHER ==
[2022-06-03 13:54] VITALS: TEMP 98
--- NOTE | 2022-06-03 14:23 | ED ---
General Adult HPI - General Chief complaint: Extremity Problem,Nontraumatic Stated complaint: Poss blood clot in thigh Time Seen by Provider: 06/03/22 14:00 Source: patient, RN notes reviewed, old records reviewed Mode of arrival: ambulatory Limitations: no limitations - History of Present Illness Initial comments: This is a 37-year-old female presents emergency Department with some inner thigh pain on the right and she feels as though there is a area is a little harder than the surrounding tissue and she is concerned she has a blood clot. Patient denies any redness of the leg patient denies any swelling to the leg per patient's any calf tenderness to light. Patient states at one point she did notice a little bit of pain running down her whole leg but that is no longer there. Patient denies any fever chills per patient denies any difficulty being short of breath palpitations or chest pain. - Related Data Previous Rx's Medication Instructions Recorded Aspirin 81 mg PO DAILY 30 Days #30 tab 02/19/22 Atorvastatin [Lipitor] 40 mg PO HS 30 Days #30 tab 02/19/22 Clopidogrel [Plavix] 75 mg PO DAILY 21 Days #21 tab 02/19/22 Allergies Allergy/AdvReac Type Severity Reaction Status Date / Time atorvastatin [From Lipitor] Allergy Unknown Verified 06/03/22 13:54 Review of Systems ROS Statement: Those systems with pertinent positive or pertinent negative responses have been documented in the HPI. ROS Other: All systems not noted in ROS Statement are negative. Past Medical History Additional Past Medical History / Comment(s): hx of blood clot right lower leg. History of Any Multi-Drug Resistant Organisms: None Reported Past Surgical History: No Surgical Hx Reported Past Anesthesia/Blood Transfusion Reactions: No Reported Reaction Past Psychological History: Depression Smoking Status: Current some day smoker Past Alcohol Use History: None Reported Past Drug Use History: None Reported General Exam - General Exam Comments Initial Comments: QGENERAL Patient is well-developed and well-nourished. Patient is in mild distress. EYES Patient's pupils are equal and round. Extraocular motion is intact SKIN Unremarkable NEURO The patient is alert and oriented 3 PYSCH Patient has normal interpersonal interactions. MUSCULOSKELETAL On the inner right thigh there is slight tenderness no redness no swelling and there does seem to be a small area of a little more firmness and the rest of the thigh. There is no swelling distal to this area there is no redness distal sensory is no calf tenderness. Limitations: no limitations Course Vital Signs 06/03/22 13:52 Temperature 98 F Pulse Rate 76 Respiratory 16 Rate Blood Pressure 121/74 O2 Sat by Pulse 98 Oximetry Medical Decision Making - Medical Decision Making Ultrasound of the leg showed no DVT. Disposition Clinical Impression: Muscle strain of left thigh Disposition: HOME SELF-CARE Condition: Good Instructions (If sedation given, give patient instructions): Muscle Strain (ED) Is patient prescribed a controlled substance at d/c from ED?: No Referrals: Benito Chu [Primary Care Provider] - 1-2 days Time of Disposition: 15:14
--- NOTE | 2022-06-03 15:03 | US ---
EXAMINATION TYPE: US venous doppler duplex LE RT DATE OF EXAM: 06/03/2022 2:09 PM COMPARISON: NONE CLINICAL HISTORY: Upper leg pain. SIDE PERFORMED: Right TECHNIQUE: The lower extremity deep venous system is examined utilizing real time linear array sonog tonja with graded compression, doppler sonography and color-flow sonography. VESSELS IMAGED: Common Femoral Vein Deep Femoral Vein Greater Saphenous Vein * Femoral Vein Popliteal Vein Small Saphenous Vein * Proximal Calf Veins (* superficial vessels) Right Leg: Negative for DVT The deep venous system of the right lower extremity from the common femoral vein to the proximal calf veins is patent and compressible with augmentable flow throughout and there is no evidence of DVT. IMPRESSION: No evidence of DVT of the right lower extremity as described above.
[2022-06-03 17:45] VITALS: BP 114/74; PULSE 72; RESP 18
== END 2022-06-03 15:20 | disposition home or self-care (01) ==
LOC: EC 13:50
DX: S76.912A Strain of unspecified muscles, fascia and tendons at thigh level, left thigh, initial encounter (principal); F17.200 Nicotine dependence, unspecified, uncomplicated; Z88.8 Allergy status to other drugs, medicaments and biological substances; X58.XXXA Exposure to other specified factors, initial encounter
CPT/HCPCS: 99283

== ENCOUNTER 2022-11-26 15:38 | Emergency (ER) | payer OTHER ==
--- NOTE | 2022-11-26 15:49 | ED ---
General Adult HPI - General Stated complaint: low heart rate Time Seen by Provider: 11/26/22 15:42 Source: RN notes reviewed - History of Present Illness Initial comments: 37-year-old female with no significant past medical history presents to the emergency department with a chief complaint of palpitations. Patient rep orts that she was at rest when she checked her abdomen watch and noticed that her heart rate was in the 40s. Shortly increased to heart rates of 160s. Patient denies personal history of atrial fibrillation. She denies any dizziness, lightheadedness, shortness of breath, chest pain with this. She did not take anything for her symptoms. She reports that the symptoms have on their own. She denies a personal cardiac or pulmonary history. - Related Data Previous Rx's Medication Instructions Recorded Aspirin 81 mg PO DAILY 30 Days #30 tab 02/19/22 Atorvastatin [Lipitor] 40 mg PO HS 30 Days #30 tab 02/19/22 Clopidogrel [Plavix] 75 mg PO DAILY 21 Days #21 tab 02/19/22 Allergies Allergy/AdvReac Type Severity Reaction Status Date / Time atorvastatin [From Lipitor] Allergy Unknown Verified 11/26/22 15:49 Review of Systems ROS Statement: Those systems with pertinent positive or pertinent negative responses have been documented in the HPI. ROS Other: All systems not noted in ROS Statement are negative. Past Medical History Additional Past Medical History / Comment(s): hx of blood clot right lower leg. History of Any Multi-Drug Resistant Organisms: None Reported Past Surgical History: No Surgical Hx Reported Past Anesthesia/Blood Transfusion Reactions: No Reported Reaction Past Psychological History: Depression Smoking Status: Current some day smoker Past Alcohol Use History: None Reported Past Drug Use History: None Reported General Exam - General Exam Comments Initial Comments: Visual Physical Exam Vital signs reviewed General: Well-appearing, nontoxic, no acute distress. Head: Normocephalic, atraumatic Eyes: PERRLA, EOMI ENT: Airway patent Chest: Nonlabored breathing Skin: No visual rash, normal skin tone Neuro: Alert and oriented 3 Musculoskeletal: No gross abnormalities General appearance: alert, in no apparent distress Head exam: Present: atraumatic, normocephalic, normal inspection Eye exam: Present: normal appearance, PERRL, EOMI. Absent: scleral icterus, conjunctival injection, periorbital swelling ENT exam: Present: normal exam, mucous membranes moist Neck exam: Present: normal inspection. Absent: tenderness, meningismus, lymphadenopathy Respiratory exam: Present: normal lung sounds bilaterally. Absent: respiratory distress, wheezes, rales, rhonchi, stridor Cardiovascular Exam: Present: regular rate, normal rhythm, normal heart sounds. Absent: systolic murmur, diastolic murmur, rubs, gallop, clicks GI/Abdominal exam: Present: soft, normal bowel sounds. Absent: distended, tenderness, guarding, rebound, rigid Extremities exam: Present: normal inspection, full ROM, normal capillary refill. Absent: tenderness, pedal edema, joint swelling, calf tenderness Back exam: Present: normal inspection Neurological exam: Present: alert, oriented X3, CN II-XII intact Psychiatric exam: Present: normal affect, normal mood Skin exam: Present: warm, dry, intact, normal color. Absent: rash Course Vital Signs 11/26/22 11/26/22 15:45 19:35 Temperature 98.1 F Pulse Rate 98 77 Respiratory 18 18 Rate Blood Pressure 145/84 122/84 O2 Sat by Pulse 98 100 Oximetry EKG Findings - EKG Comments: EKG Findings:: I interpreted the following: EKG performed at 15:52. Rate 94 bpm and normal sinus rhythm. MN interval 144, QRS duration 86, QT/QTc 334/386 Medical Decision Making - Medical Decision Making Was pt. sent in by a medical professional or institution ([facility], [facility], urgent care, hospital, or fci...) When possible be specific @ -[No] Did you speak to anyone other than the patient for history (EMS, parent, family, police, friend...)? What history was obtained from this source @ -[No] Did you review nursing and triage notes (agree or disagree)? Why? @ -[I reviewed and agree with nursing and triage notes] Were old charts reviewed (outside hosp., previous admission, EMS record, old EKG, old radiological studies, urgent care reports/EKG's, fci records)? Report findings @ -[No old charts were reviewed] Differential Diagnosis (chest pain, altered mental status, abdominal pain women, abdominal pain men, vaginal bleeding, weakness, fever, dyspnea, syncope, headache, dizziness, GI bleed, back pain, seizure, CVA, palpatations, mental health, musculoskeletal)? @ -[not applicable] EKG interpreted by me (3pts min.). @ -[As above] X-rays interpreted by me (1pt min.). @ -[None done] CT interpreted by me (1pt min.). @ -[None done] U/S interpreted by me (1pt. min.). @ -[None done] What testing was considered but not performed or refused? (CT, X-rays, U/S, labs)? Why? @ -[None] What meds were considered but not given or refused? Why? @ -[None] Did you discuss the management of the patient with other professionals (marlon alonzo i.e. , PA, [facility] CAR[facility], lab, RT, psych nurse, community mental health social worker, glass blower, teacher, forestry technical officer, case packer)? Give summary @ -[No] Was smoking cessation discussed for >3mins.? @ -[No] Was critical care preformed (if so, how long)? @ -[No] Were there social determinants of health that impacted care today? How? (Homelessness, low income, unemployed, alcoholism, drug addiction, transpo rtation, low edu. Level, literacy, decrease access to med. care, correction, rehab)? @ -[No] Was there de-escalation of care discussed even if they declined (Discuss DNR or withdrawal of care, Hospice)? DNR status @ -[No] What co-morbidities impacted this encounter? (DM, HTN, Smoking, COPD, CAD, Cancer, CVA, ARF, Chemo, Hep., AIDS, mental health diagnosis, sleep apnea, morbid obesity)? @ -[None] Was patient admitted / discharged? Hospital course, mention meds given and route, prescriptions, significant lab abnormalities, going to OR and other pertinent info. @ -Discharged. This is a 37-year-old female with with palpitations. Patient had a thorough history and physical exam performed on the ED. Physical exam is essentially unremarkable heart rate regular rate and rhythm, lungs clear to auscultation bilaterally abdomen is soft and nontender. Patient remains to be with a heart rate of 80s to 90s on the ED. Patient had lab work and in involving the ED. She had a full workup which were essentially unremarkable. I discussed the results in detail and the patient verbalized understanding. All questions and concerns were addressed. Return precautions were discussed. She was encouraged to follow up with her primary care in 1-2 days. She was discharged in stable condition. Case discussed with [facility] Yung [facility] who agrees with plan of care Undiagnosed new problem with uncertain prognosis? @ -[No] Drug Therapy requiring intensive monitoring for toxicity (Heparin, Nitro, Insulin, Cardizem)? @ -[No] Were any procedures done? @ -[No] Diagnosis/symptom? @ -palpitations Acute, or Chronic, or Acute on Chronic? @ -acute Uncomplicated (without systemic symptoms) or Complicated (systemic symptoms)? @ -uncomplicated Side effects of treatment? @ -[No] Exacerbation, Progression, or Severe Exacerbation? @ -[No] Poses a threat to life or bodily function? How? (Chest pain, USA, AR, pneumonia, PE, COPD, DKA, ARF, appy, cholecystitis, CVA, Diverticulitis, Homicidal, Suicidal, threat to staff... and all critical care pts) @ -low likelihood - Lab Data Result diagrams: 11/26/22 18:18 11/26/22 18:18 Lab Results 11/26/22 11/26/22 11/26/22 Range/Units 18:18 18:18 18:18 WBC 12.2 H (3.8-10.6) k/uL RBC 5.03 (3.80-5.40) m/uL Hgb 14.9 (11.4-16.0) gm/dL Hct 43.5 (34.0-46.0) % MCV 86.6 (80.0-100.0) fL MCH 29.7 (25.0-35.0) pg MCHC 34.3 (31.0-37.0) g/dL RDW 12.9 (11.5-15.5) % Plt Count 307 (150-450) k/uL MPV 7.6 Neutrophils % 74 % Lymphocytes % 21 % Monocytes % 3 % Eosinophils % 1 % Basophils % 0 % Neutrophils # 9.0 H (1.3-7.7) k/uL Lymphocytes # 2.5 (1.0-4.8) k/uL Monocytes # 0.3 (0-1.0) k/uL Eosinophils # 0.2 (0-0.7) k/uL Basophils # 0.1 (0-0.2) k/uL Sodium 136 L (137-145) mmol/L Potassium 5.1 (3.5-5.1) mmol/L Chloride 106 (98-107) mmol/L Carbon Dioxide 24 (22-30) mmol/L Anion Gap 6 mmol/L BUN 9 (7-17) mg/dL Creatinine 0.63 (0.52-1.04) mg/dL Est GFR (CKD-EPI)AfAm >90 (>60 ml/min/1.73 sqM) Est GFR (CKD-EPI)NonAf >90 (>60 ml/min/1.73 sqM) Glucose 90 (74-99) mg/dL Calcium 8.8 (8.4-10.2) mg/dL Total Bilirubin 0.6 (0.2-1.3) mg/dL AST 31 (14-36) U/L ALT 23 (4-34) U/L Alkaline Phosphatase 117 (38-126) U/L Troponin I <0.012 (0.000-0.034) ng/mL Total Protein 7.4 (6.3-8.2) g/dL Albumin 4.3 (3.5-5.0) g/dL Urine Color Urine Appearance (Clear) Urine pH (5.0-8.0) Ur Specific Willard (1.001-1.035) Urine Protein (Negative) Urine Glucose (UA) (Negative) Urine Ketones (Negative) Urine Blood (Negative) Urine Nitrite (Negative) Urine Bilirubin (Negative) Urine Urobilinogen (<2.0) mg/dL Ur Leukocyte Esterase (Negative) Urine RBC (0-5) /hpf Urine WBC (0-5) /hpf Ur Squamous Epith Cells (0-4) /hpf Urine Mucus (None) /hpf Urine HCG, Qual (Not Detectd) 11/26/22 11/26/22 Range/Units 18:18 18:18 WBC (3.8-10.6) k/uL RBC (3.80-5.40) m/uL Hgb (11.4-16.0) gm/dL Hct (34.0-46.0) % MCV (80.0-100.0) fL MCH (25.0-35.0) pg MCHC (31.0-37.0) g/dL RDW (11.5-15.5) % Plt Count (150-450) k/uL MPV Neutrophils % % Lymphocytes % % Monocytes % % Eosinophils % % Basophils % % Neutrophils # (1.3-7.7) k/uL Lymphocytes # (1.0-4.8) k/uL Monocytes # (0-1.0) k/uL Eosinophils # (0-0.7) k/uL Basophils # (0-0.2) k/uL Sodium (137-145) mmol/L Potassium (3.5-5.1) mmol/L Chloride (98-107) mmol/L Carbon Dioxide (22-30) mmol/L Anion Gap mmol/L BUN (7-17) mg/dL Creatinine (0.52-1.04) mg/dL Est GFR (CKD-EPI)AfAm (>60 ml/min/1.73 sqM) Est GFR (CKD-EPI)NonAf (>60 ml/min/1.73 sqM) Glucose (74-99) mg/dL Calcium (8.4-10.2) mg/dL Total Bilirubin (0.2-1.3) mg/dL AST (14-36) U/L ALT (4-34) U/L Alkaline Phosphatase (38-126) U/L Troponin I (0.000-0.034) ng/mL Total Protein (6.3-8.2) g/dL Albumin (3.5-5.0) g/dL Urine Color Yellow Urine Appearance Cloudy H (Clear) Urine pH 7.5 (5.0-8.0) Ur Specific Willard 1.024 (1.001-1.035) Urine Protein Trace H (Negative) Urine Glucose (UA) Negative (Negative) Urine Ketones Negative (Negative) Urine Blood Negative (Negative) Urine Nitrite Negative (Negative) Urine Bilirubin Negative (Negative) Urine Urobilinogen 2.0 (<2.0) mg/dL Ur Leukocyte Esterase Small H (Negative) Urine RBC 2 (0-5) /hpf Urine WBC 1 (0-5) /hpf Ur Squamous Epith Cells 4 (0-4) /hpf Urine Mucus Few H (None) /hpf Urine HCG, Qual Not Detected (Not Detectd) Disposition Clinical Impression: Palpitations Disposition: HOME SELF-CARE Condition: Stable Instructions (If sedation given, give patient instructions): Heart Palpitations (ED) Additional Instructions: Please return to the nearest emergency department if symptoms worsen or persist Is patient prescribed a controlled substance at d/c from ED?: No Referrals: Cirilo Scales MD [Primary Care Provider] - 1-2 days Pola Denis MD [STAFF PHYSICIAN] - 1-2 days Time of Disposition: 19:14
[2022-11-26 15:50] VITALS: RESP 18; TEMP 98.1
--- NOTE | 2022-11-26 18:14 | XR ---
EXAMINATION TYPE: XR chest 2V DATE OF EXAM: 11/26/2022 5:51 PM COMPARISON: Chest radiographs from 02/17/2022 TECHNIQUE: XR chest 2V Frontal and lateral views of the chest. CLINICAL INDICATION:Female, 37 years old with history of palpitations; FINDINGS: Lungs/Pleura: There is no evidence of pleural effusion, focal consolidation, or pneumothorax. Pulmonary vascularity: Unremarkable. Heart/mediastinum: Cardiomediastinal silhouette is unremarkable. Musculoskeletal: No acute osseous pathology. IMPRESSION: No acute cardiopulmonary disease/process.
[2022-11-26 18:35] LABS: Basophils # (A) 0.1 k/uL (0-0.2); Basophils % (A) 0 %; Eosinophils # (A) 0.2 k/uL (0-0.7); Eosinophils % (A) 1 %; HCT 43.5 % (34.0-46.0); HGB 14.9 gm/dL (11.4-16.0); Lymphocytes # (A) 2.5 k/uL (1.0-4.8); Lymphocytes % (A) 21 %; MCH 29.7 pg (25.0-35.0); MCHC 34.3 g/dL (31.0-37.0); MCV 86.6 fL (80.0-100.0); Mean Platelet Volume 7.6; Monocytes # (A) 0.3 k/uL (0-1.0); Monocytes % (A) 3 %; Neutrophils % (A) 74 %; Platelet Count 307 k/uL (150-450); RBC 5.03 m/uL (3.80-5.40); RDW 12.9 % (11.5-15.5); WBC 12.2 k/uL (3.8-10.6)
[2022-11-26 18:36] LABS: ALT 23 U/L (4-34); African American GFR (CKD) >90 (>60 ml/min/1.73 sqM); Albumin 4.3 g/dL (3.5-5.0); Anion Gap 6 mmol/L; Blood Urea Nitrogen 9 mg/dL (7-17); Calcium 8.8 mg/dL (8.4-10.2); Carbon Dioxide 24 mmol/L (22-30); Chloride 106 mmol/L (98-107); Glucose 90 mg/dL (74-99); Non-African American GFR(CKD) >90 (>60 ml/min/1.73 sqM); Sodium 136 mmol/L (137-145); Total Bilirubin 0.6 mg/dL (0.2-1.3)
[2022-11-26 18:40] LABS: Appearance,Urine Cloudy (Clear); Bilirubin,Urine Negative (Negative); Blood,Urine Negative (Negative); Color,Urine Yellow; Glucose,Urine (UA) Negative (Negative); Ketones,Urine Negative (Negative); Leukocyte Esterase,Urine Small (Negative); Mucus,Urine Few /hpf; Nitrite,Urine Negative (Negative); PH, Urine 7.5 (5.0-8.0); Protein,Urine Trace (Negative); RBC,Urine 2 /hpf (0-5); Specific Gravity,Urine 1.024 (1.001-1.035); Squamous Epithelial Cell,Urine 4 /hpf (0-4); WBC,Urine 1 /hpf (0-5)
[2022-11-26 18:41] LABS: AST 31 U/L (14-36); Alkaline Phosphatase 117 U/L (38-126); Total Protein 7.4 g/dL (6.3-8.2)
[2022-11-26 19:02] LABS: Potassium 5.1 mmol/L (3.5-5.1)
[2022-11-26 19:36] VITALS: BP 122/84; PULSE 77
== END 2022-11-26 19:37 | disposition home or self-care (01) ==
LOC: EC 15:38
DX: R00.2 Palpitations (principal); F17.200 Nicotine dependence, unspecified, uncomplicated
CPT/HCPCS: 36415; 71046; 80053; 81001; 81025; 84484; 85025; 93005; 99285

== ENCOUNTER 2022-11-28 21:23 | Emergency (ER) | payer OTHER ==
[2022-11-28 21:33] VITALS: RESP 20; TEMP 98.3
[2022-11-28 22:13] VITALS: BP 120/80; PULSE 89
[2022-11-28 22:19] LABS: Basophils # (A) 0.1 k/uL (0-0.2); Basophils % (A) 1 %; Eosinophils # (A) 0.2 k/uL (0-0.7); Eosinophils % (A) 2 %; HCT 43.1 % (34.0-46.0); HGB 14.5 gm/dL (11.4-16.0); Lymphocytes # (A) 2.2 k/uL (1.0-4.8); Lymphocytes % (A) 20 %; MCHC 33.6 g/dL (31.0-37.0); MCV 86.4 fL (80.0-100.0); Mean Platelet Volume 7.9; Monocytes # (A) 0.5 k/uL (0-1.0); Monocytes % (A) 5 %; Neutrophils # (A) 7.9 k/uL (1.3-7.7); Neutrophils % (A) 72 %; Platelet Count 278 k/uL (150-450); RBC 4.99 m/uL (3.80-5.40); WBC 10.9 k/uL (3.8-10.6)
[2022-11-28 22:31] LABS: ALT 21 U/L (4-34); AST 20 U/L (14-36); African American GFR (CKD) >90 (>60 ml/min/1.73 sqM); Albumin 4.3 g/dL (3.5-5.0); Alkaline Phosphatase 125 U/L (38-126); Anion Gap 8 mmol/L; Blood Urea Nitrogen 11 mg/dL (7-17); Calcium 9.2 mg/dL (8.4-10.2); Carbon Dioxide 25 mmol/L (22-30); Chloride 104 mmol/L (98-107); Glucose 102 mg/dL (74-99); Non-African American GFR(CKD) >90 (>60 ml/min/1.73 sqM); Sodium 137 mmol/L (137-145); Total Bilirubin 0.4 mg/dL (0.2-1.3); Total Protein 7.3 g/dL (6.3-8.2)
[2022-11-28 22:41] LABS: INR 0.9 (<1.2); Partial Thromboplastin Time 23.6 sec (22.0-30.0); Prothrombin Time 9.7 sec (9.0-12.0)
--- NOTE | 2022-11-28 23:01 | XR ---
EXAMINATION TYPE: XR chest 2V DATE OF EXAM: 11/28/2022 COMPARISON: 11/26/2022 HISTORY: Palpitations TECHNIQUE: 2 views FINDINGS: Heart and mediastinum are normal. Lungs are clear. Diaphragm is normal. Bony thorax appears normal. IMPRESSION: Normal chest. No change.
--- NOTE | 2022-11-28 23:08 | ED ---
General Adult HPI - General Chief complaint: Arrhythmia/Palpitations Stated complaint: heart issues Time Seen by Provider: 11/28/22 21:39 Source: patient Mode of arrival: ambulatory Limitations: no limitations - History of Present Illness Initial comments: This is a 37-year-old female with a past medical history including previous anxiety, not on any medication, presented to the emergency department for palpitations. The patient reported that she had intermittent elevation of her heart rate according to her Watch. The patient however denied of any acute complaints including any shortness of breath, lightheadedness or chest pain. The patient had been seen in the emergency department several days before for the same complaints and no abnormality was noted. The patient tried to follow- up with her tester operator helper however needed a referral from her primary care physician. The patient stated that she had recurrence of her symptoms today so she wanted to be reevaluated. On arrival, the patient was resting in bed without any acute complaints. - Related Data Previous Rx's Medication Instructions Recorded Aspirin 81 mg PO DAILY 30 Days #30 tab 02/19/22 Allergies Allergy/AdvReac Type Severity Reaction Status Date / Time atorvastatin [From Lipitor] Allergy Unknown Verified 11/28/22 22:13 [id number] Reductase Allergy Unknown Verified 11/28/22 22:13 Inhibitor Review of Systems ROS Statement: Those systems with pertinent positive or pertinent negative responses have been documented in the HPI. ROS Other: All systems not noted in ROS Statement are negative. Past Medical History Past Medical History: CVA/TIA, Deep Vein Thrombosis (DVT) Additional Past Medical History / Comment(s): hx of blood clot right lower leg. History of Any Multi-Drug Resistant Organisms: None Reported Past Surgical History: No Surgical Hx Reported Past Anesthesia/Blood Transfusion Reactions: No Reported Reaction Past Psychological History: Depression Smoking Status: Current some day smoker Past Alcohol Use History: None Reported Past Drug Use History: None Reported General Exam Limitations: no limitations General appearance: alert, in no apparent distress Head exam: Present: atraumatic, normocephalic, normal inspection Eye exam: Present: normal appearance, PERRL Pupils: Present: normal accommodation ENT exam: Present: normal exam, normal oropharynx, mucous membranes moist Neck exam: Present: normal inspection, full ROM Respiratory exam: Present: normal lung sounds bilaterally Cardiovascular Exam: Present: regular rate, normal rhythm, normal heart sounds GI/Abdominal exam: Present: soft, normal bowel sounds Extremities exam: Present: normal inspection, full ROM Back exam: Present: normal inspection, full ROM Neurological exam: Present: alert, oriented X3, CN II-XII intact Psychiatric exam: Present: normal affect, normal mood Skin exam: Present: warm, dry Course Vital Signs 11/28/22 11/28/22 21:31 22:13 Temperature 98.3 F Pulse Rate 103 H 89 Respiratory 20 Rate Blood Pressure 130/74 120/80 O2 Sat by Pulse 100 100 Oximetry EKG Findings - EKG Comments: EKG Findings:: An EKG was obtained and was interpreted by myself showing a rate of 90, AZ interval 157, QRS duration 96 and QTC of 405. This EKG showed a norm al sinus rhythm with no ST segment elevation or depression noted. Medical Decision Making - Medical Decision Making Was pt. sent in by a medical professional or institution (, [facility], [facility], urgent care, hospital, or shelter...) When possible be specific @ -No Did you speak to anyone other than the patient for history (EMS, parent, family, police, friend...)? What history was obtained from this source @ -No Did you review nursing and triage notes (agree or disagree)? Why? @ -I reviewed and agree with nursing and triage notes Were old charts reviewed (outside hosp., previous admission, EMS record, old EKG, old radiological studies, urgent care reports/EKG's, shelter records)? Report findings @ -Yes, previous ER visit chart was reviewed Differential Diagnosis (chest pain, altered mental status, abdominal pain women, abdominal pain men, vaginal bleeding, weakness, fever, dyspnea, syncope, headache, dizziness, GI bleed, back pain, seizure, CVA, palpatations, mental hea lth)? @ -Palpitations, SVT, ACS, PE EKG interpreted by me (3pts min.). @ -As above X-rays interpreted by me (1pt min.). @ -Chest x-ray was obtained and was interpreted by myself showing no acute process. CT interpreted by me (1pt min.). @ -None done U/S interpreted by me (1pt. min.). @ -None done What testing was considered but not performed or refused? (CT, X-rays, U/S, labs)? Why? @ -None What meds were considered but not given or refused? Why? @ -None Did you discuss the management of the patient with other professionals (pr ofessionals i.e. , PA, [facility], lab, RT, psych nurse, social work job titles, life underwriter, teacher, parking regulation enforcement officer, case packer)? Give summary @ -No Was smoking cessation discussed for >3mins.? @ -No Was critical care preformed (if so, how long)? @ -No Were there social determinants of health that impacted care today? How? (Homelessness, low income, unemployed, alcoholism, drug addiction, transport ation, low edu. Level, literacy, decrease access to med. care, [facility]ci, rehab)? @ -No Was there de-escalation of care discussed even if they declined (Discuss DNR or withdrawal of care, Hospice)? DNR status @ -No What co-morbidities impacted this encounter? (DM, HTN, Smoking, COPD, CAD, Cancer, CVA, ARF, Chemo, Hep., AIDS, mental health diagnosis, sleep apnea, morbid obesity)? @ -None Was patient admitted / discharged? Hospital course, mention meds given and route, prescriptions, significant lab abnormalities, going to OR and other pertinent info. @ -The patient was seen and evaluated emergency department. Physical exam, the patient was resting in bed without any acute distress. Vital signs admission were stable. All workup was negative. The patient likely had recurrence of her palpitations however denied of any obvious cardiac arrhythmia. The patient was once again advised to follow-up with her primary care physician as well as tester operator helper for further workup and evaluation. The patient was agreeable to this and all of her questions were answered. The patient was discharged home in stable condition. Undiagnosed new problem with uncertain prognosis? @ -No Drug Therapy requiring intensive monitoring for toxicity (Heparin, Nitro, Insulin, Cardizem)? @ -No Were any procedures done? @ -No Diagnosis/symptom? @ -Palpitations, NOS Acute, or Chronic, or Acute on Chronic? @ -Acute Uncomplicated (without systemic symptoms) or Complicated (systemic symptoms)? @ -Uncomplicated Side effects of treatment? @ -No Exacerbation, Progression, or Severe Exacerbation? @ -No Poses a threat to life or bodily function? How? (Chest pain, [place], [place], pneumonia, PE, COPD, DKA, ARF, appy, cholecystitis, CVA, Diverticulitis, Homicidal, Suicid al, threat to staff... and all critical care pts) @ -No - Lab Data Result diagrams: 11/28/22 21:48 11/28/22 21:48 Lab Results 11/28/22 11/28/22 11/28/22 Range/Units 21:48 21:48 21:48 WBC 10.9 H (3.8-10.6) k/uL RBC 4.99 (3.80-5.40) m/uL Hgb 14.5 (11.4-16.0) gm/dL Hct 43.1 (34.0-46.0) % MCV 86.4 (80.0-100.0) fL MCH 29.0 (25.0-35.0) pg MCHC 33.6 (31.0-37.0) g/dL RDW 13.0 (11.5-15.5) % Plt Count 278 (150-450) k/uL MPV 7.9 Neutrophils % 72 % Lymphocytes % 20 % Monocytes % 5 % Eosinophils % 2 % Basophils % 1 % Neutrophils # 7.9 H (1.3-7.7) k/uL Lymphocytes # 2.2 (1.0-4.8) k/uL Monocytes # 0.5 (0-1.0) k/uL Eosinophils # 0.2 (0-0.7) k/uL Basophils # 0.1 (0-0.2) k/uL PT 9.7 (9.0-12.0) sec INR 0.9 (<1.2) APTT 23.6 (22.0-30.0) sec D-Dimer 0.53 (<0.60) mg/L FEU Sodium 137 (137-145) mmol/L Potassium 4.0 (3.5-5.1) mmol/L Chloride 104 (98-107) mmol/L Carbon Dioxide 25 (22-30) mmol/L Anion Gap 8 mmol/L BUN 11 (7-17) mg/dL Creatinine 0.65 (0.52-1.04) mg/dL Est GFR (CKD-EPI)AfAm >90 (>60 ml/min/1.73 sqM) Est GFR (CKD-EPI)NonAf >90 (>60 ml/min/1.73 sqM) Glucose 102 H (74-99) mg/dL Calcium 9.2 (8.4-10.2) mg/dL Magnesium 2.0 (1.6-2.3) mg/dL Total Bilirubin 0.4 (0.2-1.3) mg/dL AST 20 (14-36) U/L ALT 21 (4-34) U/L Alkaline Phosphatase 125 (38-126) U/L Troponin I (0.000-0.034) ng/mL NT-Pro-B Natriuret Pep pg/mL Total Protein 7.3 (6.3-8.2) g/dL Albumin 4.3 (3.5-5.0) g/dL 11/28/22 11/28/22 Range/Units 21:48 21:48 WBC (3.8-10.6) k/uL RBC (3.80-5.40) m/uL Hgb (11.4-16.0) gm/dL Hct (34.0-46.0) % MCV (80.0-100.0) fL MCH (25.0-35.0) pg MCHC (31.0-37.0) g/dL RDW (11.5-15.5) % Plt Count (150-450) k/uL MPV Neutrophils % % Lymphocytes % % Monocytes % % Eosinophils % % Basophils % % Neutrophils # (1.3-7.7) k/uL Lymphocytes # (1.0-4.8) k/uL Monocytes # (0-1.0) k/uL Eosinophils # (0-0.7) k/uL Basophils # (0-0.2) k/uL PT (9.0-12.0) sec INR (<1.2) APTT (22.0-30.0) sec D-Dimer (<0.60) mg/L FEU Sodium (137-145) mmol/L Potassium (3.5-5.1) mmol/L Chloride (98-107) mmol/L Carbon Dioxide (22-30) mmol/L Anion Gap mmol/L BUN (7-17) mg/dL Creatinine (0.52-1.04) mg/dL Est GFR (CKD-EPI)AfAm (>60 ml/min/1.73 sqM) Est GFR (CKD-EPI)NonAf (>60 ml/min/1.73 sqM) Glucose (74-99) mg/dL Calcium (8.4-10.2) mg/dL Magnesium (1.6-2.3) mg/dL Total Bilirubin (0.2-1.3) mg/dL AST (14-36) U/L ALT (4-34) U/L Alkaline Phosphatase (38-126) U/L Troponin I <0.012 (0.000-0.034) ng/mL NT-Pro-B Natriuret Pep 65 pg/mL Total Protein (6.3-8.2) g/dL Albumin (3.5-5.0) g/dL Disposition Clinical Impression: Palpitations Disposition: HOME SELF-CARE Condition: Stable Instructions (If sedation given, give patient instructions): Heart Palpitations (ED) Is patient prescribed a controlled substance at d/c from ED?: No Referrals: Cirilo Scales MD [Primary Care Provider] - 1-2 days Noah Guthrie MD [STAFF PHYSICIAN] - 1-2 days Time of Disposition: 22:45
== END 2022-11-28 23:19 | disposition home or self-care (01) ==
LOC: EC 21:23
DX: R00.2 Palpitations (principal); F17.200 Nicotine dependence, unspecified, uncomplicated
CPT/HCPCS: 36415; 71046; 80053; 83735; 83880; 84484; 85025; 85379; 85610; 85730; 93005; 99285

== ENCOUNTER → 2023-01-10 | Outpatient (CLI) | payer OTHER ==
--- NOTE | 2023-01-26 00:09 | HM ---
HOLTER MONITOR REPORT STUDY PERFORMED: A 48-hour Holter report. FINDINGS: The patient in her diary had 1 episode of palpitations. Predominant rhythm is sinus with a heart rate ranging from 40 to 130 beats per minute. Average heart rate of 79 beats per minute. When the patient complained of some palpitations and skipping in her chest, her rhythm was sinus with 1 PAC. She has sinus rhythm and sinus tachycardia. Rare isolated PVCs of less than 1% and no evidence of any yovani arrhythmia. FINAL IMPRESSION: Predominant rhythm is sinus with rare isolated premature ventricular contractions. No significant arrhythmia noted. The patient had premature atrial contractions when she complained of palpitations. MMODL / IJN: [id number] /
== END | disposition home or self-care (01) ==
LOC: RADECHMAIN 12:33
PROVIDERS: ATTEND Family Medicine
DX: I49.3 Ventricular premature depolarization (principal); R00.2 Palpitations
CPT/HCPCS: 93225; 93226

== ENCOUNTER → 2023-01-23 | Outpatient (CLI) | payer OTHER ==
--- NOTE | 2023-01-24 08:21 | XR ---
EXAMINATION TYPE: XR cervical spine 3 views limited DATE OF EXAM: 01/23/2023 Comparison: None Clinical History: 37-year-old female M54.2 Findings: No predental space widening or prevertebral soft tissue swelling. Straightening of the normal cervica l lordosis with preserved alignment. Disc interspaces are also maintained. Normal odontoid view. Impression: Straightening of the normal cervical lordosis could be positional or due to muscle spasm. No malalign ment or prevertebral soft tissue swelling.
== END | disposition home or self-care (01) ==
LOC: RADXRMAIN 16:41
PROVIDERS: ATTEND Family Medicine
DX: M54.2 Cervicalgia (principal)
CPT/HCPCS: 72040

== ENCOUNTER 2025-03-20 01:45 | Emergency (ER) | payer BC, OTHER ==
[2025-03-20 02:00] VITALS: RESP 18
[2025-03-20] MEDS: KETOROLAC 15 MG/ML 1 ML VIAL IVP STA (02:52)
[2025-03-20] MEDS: SODIUM CHLORIDE 0.9% 1,000 ML IV STA (02:54)
[2025-03-20 03:06] LABS: Basophils # (A) 0.03 10*3/uL (0.00-0.10); Basophils % (A) 0.3 %; Eosinophils # (A) 0.10 10*3/uL (0.04-0.35); Eosinophils % (A) 1.0 %; HCT 40.3 % (37.2-46.3); HGB 13.5 g/dL (12.0-15.0); Lymphocytes # (A) 2.23 10*3/uL (0.90-5.00); Lymphocytes % (A) 22.6 %; MCH 29.0 pg (27.0-32.0); MCHC 33.5 g/dL (32.0-37.0); MCV 86.5 fL (80.0-97.0); Monocytes # (A) 0.58 10*3/uL (0.20-1.00); Monocytes % (A) 5.9 %; Neutrophils # (A) 6.88 10*3/uL (1.80-7.70); Neutrophils % (A) 69.8 %; Platelet Count 277 10*3/uL (140-440); RBC 4.66 10*6/uL (4.10-5.20); RDW 13.6 % (11.5-14.5); WBC 9.86 10*3/uL (4.50-10.00)
[2025-03-20 03:27] LABS: ALT 20 U/L (4-34); AST 20 U/L (14-36); African American GFR (CKD) >90 (>60 ml/min/1.73 sqM); Albumin 4.0 g/dL (3.5-5.0); Alkaline Phosphatase 89 U/L (38-126); Anion Gap 11 mmol/L; Blood Urea Nitrogen 14 mg/dL (7-17); Calcium 9.1 mg/dL (8.4-10.2); Carbon Dioxide 19 mmol/L (22-30); Chloride 110 mmol/L (98-107); Glucose 142 mg/dL (74-99); Magnesium 2.0 mg/dL (1.6-2.3); Non-African American GFR(CKD) >90 (>60 ml/min/1.73 sqM); Potassium 3.9 mmol/L (3.5-5.1); Sodium 140 mmol/L (137-145); Total Protein 6.6 g/dL (6.3-8.2)
[2025-03-20 03:34] LABS: INR 0.9 (<1.2); Partial Thromboplastin Time 23.8 sec (22.0-30.0); Prothrombin Time 10.0 sec (10.0-12.5)
[2025-03-20 03:35] LABS: NT-Pro-B-Type Natriuretic Pept <20 pg/mL
[2025-03-20 03:45] LABS: RSV Not Detected (Not Detectd)
--- NOTE | 2025-03-20 03:56 | ED ---
General Adult HPI - General Chief complaint: Extremity Injury, Lower Stated complaint: rt leg redness SOB Time Seen by Provider: 03/20/25 02:26 Source: patient, RN notes reviewed, old records reviewed Mode of arrival: ambulatory - History of Present Illness Initial comments: 39-year-old female presents emergency department complaining of right lower extremity possible mild redness and calf discomfort. Patient states she also has has been somewhat short of breath for last few days. Does have positive sick contacts at home. No significant chest congestion but states a stomach bug has been ongoing. Also states she has had some mild nonsevere chest discomfort over the left chest that has been present for multiple days. No known palliative provocative factors for any symptoms. Does have a history of DVT and is concerned that she may have another DVT. Is not currently on blood thinners. Has no other acute complaints at this time. Presents for further ev aluation.Patient states the right lower extremity redness is resolving since earlier. Unknown what caused it. She is concerned because of her history of DVTs and blood clots and she wants to be evaluated to be safe.Patient denies any radiation of the pain, denies any diaphoresis or nausea or vomiting with it. No significant pain at this time. - Related Data Previous Rx's Medication Instructions Recorded Aspirin 81 mg PO DAILY 30 Days #30 tab 02/19/22 Allergies Allergy/AdvReac Type Severity Reaction Status Date / Time atorvastatin [From Lipitor] Allergy Unknown Verified 03/20/25 01:54 [id number] Reductase Allergy Unknown Verified 03/20/25 01:54 Inhibitor Review of Systems ROS Statement: Those systems with pertinent positive or pertinent negative responses have been documented in the HPI. Review of Systems: CONST: Denies fever EYES: Denies blurry vision ENT: Denies nasal congestion C/V: Endorses mild atypical chest pain RESP: Endorses occasional dyspnea GI: Denies abdominal pain : Denies dysuria SKIN: Endorses redness of the right lower extremity that is resolving MSK: Denies joint pain. NEURO: Denies headache ROS Other: All systems not noted in ROS Statement are negative. Past Medical History Past Medical History: CVA/TIA, Deep Vein Thrombosis (DVT) Additional Past Medical History / Comment(s): hx of blood clot right lower leg. History of Any Multi-Drug Resistant Organisms: None Reported Past Surgical History: No Surgical Hx Reported Past Anesthesia/Blood Transfusion Reactions: No Reported Reaction Past Psychological History: Depression Smoking Status: Current some day smoker Past Alcohol Use History: None Reported Past Drug Use History: None Reported General Exam - General Exam Comments Initial Comments: General: Appears in no acute distress. HEAD: Normal with no signs of head trauma. EYES: PERRLA, EOMI, conjunctiva normal, no discharge. ENT: Hearing grossly intact, normal oropharynx. RESPIRATORY: Clear breath sounds bilaterally. No wheezes, rales, or rhonchi. C/V: Regular rate and rhythm. S1 and S2 auscultated, no edema, peripheral pulses 2+ and intact throughout. Chest pain not reproducible on palpation. ABD: Abd is soft, nontender, nondistended EXT: Normal range of motion, no obvious deformity. No tenderness to palpation of the right calf. Neurovasc intact throughout. SKIN: No rashes or lesions observed on exposed skin. No significant erythema of the right lower extremity or calf. NEURO: Alert and orient x 4. Course Vital Signs 03/20/25 01:53 Temperature 98.7 F Pulse Rate 87 Respiratory 18 Rate Blood Pressure 136/92 O2 Sat by Pulse 99 Oximetry Medical Decision Making - Medical Decision Making Was pt. sent in by a medical professional or institution (, PA, HOSPITALIST MEDICAL DIRECTOR, urgent care, hospital, or residential...) When possible be specific @ -No Did you speak to anyone other than the patient for history (EMS, parent, family, police, friend...)? What history was obtained from this source @ -No Did you review nursing and triage notes (agree or disagree)? Why? @ -I reviewed and agree with nursing and triage notes Were old charts reviewed (outside hosp., previous admission, EMS record, old EKG, old radiological studies, urgent care reports/EKG's, residential records)? Report findings @ -No old charts were reviewed Differential Diagnosis (chest pain, altered mental status, abdominal pain women, abdominal pain men, vaginal bleeding, weakness, fever, dyspnea, syncope, he adache, dizziness, GI bleed, back pain, seizure, CVA, palpatations, mental health, musculoskeletal)? @ -Differential Chest Pain: Stable Angina, Unstable Angina, STEMI, NSTEMI Aortic Dissection, Pneumothorax, Musculoskeletal, Esophageal Spasm GERD, Cholecystitis, Pancreatitis, Zoster, this is not meant to be an all-inclusive list. EKG interpreted by me (3pts min.). @ -As above X-rays interpreted by me (1pt min.). @ -Chest x-ray reveals no obvious acute cardiopulmonary process. CT interpreted by me (1pt min.). @ -None done U/S interpreted by me (1pt. min.). @ -None done What testing was considered but not performed or refused? (CT, X-rays, U/S, labs)? Why? @ -None What meds were considered but not given or refused? Why? @ -None Did you discuss the management of the patient with other professionals (professionals i.e. DrAracelis, PA, HOSPITALIST MEDICAL DIRECTOR, lab, RT, psych nurse, secondary social studies teacher, buffet manager, teacher, welfare officer, casework manager)? Give summary @ -No Was smoking cessation discussed for >3mins.? @ -No Was critical care preformed (if so, how long)? @ -No Were there social determinants of health that impacted care today? How? (Homelessness, low income, unemployed, alcoholism, drug addiction, transportation, low edu. Level, literacy, decrease access to med. care, senior care, rehab)? @ -No Was there de-escalation of care discussed even if they declined (Discuss DNR or withdrawal of care, Hospice)? DNR status @ -No What co-morbidities impacted this encounter? (DM, HTN, Smoking, COPD, CAD, Canc er, CVA, ARF, Chemo, Hep., AIDS, mental health diagnosis, sleep apnea, morbid obesity)? @ -Prior history of DVT Was patient admitted / discharged? Hospital course, mention meds given and route, prescriptions, significant lab abnormalities, going to OR and other pertinent info. @ -Presents emergency department over concern for some right lower extremity redness which is improving as time goes by as well as some nonspecific dyspnea and chest discomfort. Will obtain cardiopulmonary workup. She was in agreement this plan. History of DVT but is not currently on blood thinners. Is the middle the night we cannot obtain ultrasound of the lower extremities but we will obtain screening D-dimer. She was in agreement this plan. Patient has anxiety regarding this as she does have a history of DVT. Patient will be given IV fluids and IV Toradol. EKG shows no signs of acute ischemia. Laboratory studies are within acceptable limits including normal D-dimer, undetectable troponin, undetectable BNP. Remainder the workup unremarkable. Chest x-ray unremarkable. On reevaluation, redness of the right lower extremity is resolved. Discussed it may have been related to how she was sleeping. Exam is unremarkable. She is feeling improved. Patient will be discharged home at this time. Patient was in agreement this plan. Heart score is low. Chest pain has been present for a few days on and off. No further workup required at this time. Recommend follow-up with PCP in the next 1 to 3 days. I instructed the patient to follow up with their PCP in the next 1-3 days. I explained that the patient should return to the emergency department if they experience any worsening symptoms. Strict return precautions were discussed with the patient. The patient expressed understanding of these instructions. I answered all questions that the patient had. The patient was discharged home in good condition with their prescriptions and follow up information. Undiagnosed new problem with uncertain prognosis? @ -No Drug Therapy requiring intensive monitoring for toxicity (Heparin, Nitro, Insu karina, Cardizem)? @ -No Were any procedures done? @ -No Diagnosis/symptom? @ -Atypical chest pain Acute, or Chronic, or Acute on Chronic? @ -Acute Uncomplicated (without systemic symptoms) or Complicated (systemic symptoms)? @ -Uncomplicated Side effects of treatment? @ -No Exacerbation, Progression, or Severe Exacerbation? @ -No Poses a threat to life or bodily function? How? (Chest pain, [place], [place], pneumonia, PE, COPD, DKA, ARF, appy, cholecystitis, CVA, Diverticulitis, Homicidal, Suicidal, threat to staff... and all critical care pts) @ -Unlikely at this time - Lab Data Result diagrams: 03/20/25 02:26 03/20/25 02:26 Lab Results 03/20/25 03/20/25 03/20/25 Range/Units 02:26 02:26 02:26 WBC 9.86 (4.50-10.00) 10*3/uL RBC 4.66 (4.10-5.20) 10*6/uL Hgb 13.5 (12.0-15.0) g/dL Hct 40.3 (37.2-46.3) % MCV 86.5 (80.0-97.0) fL MCH 29.0 (27.0-32.0) pg MCHC 33.5 (32.0-37.0) g/dL Plt Count 277 (140-440) 10*3/uL MPV 10.5 (9.5-12.2) fL Immature Gran % (Auto) 0.4 % Neutrophils % 69.8 % Lymphocytes % 22.6 % Monocytes % 5.9 % Eosinophils % 1.0 % Basophils % 0.3 % Immature Gran # 0.04 (0.00-0.04) 10*3/uL Neutrophils # 6.88 (1.80-7.70) 10*3/uL Lymphocytes # 2.23 (0.90-5.00) 10*3/uL Monocytes # 0.58 (0.20-1.00) 10*3/uL Eosinophils # 0.10 (0.04-0.35) 10*3/uL Basophils # 0.03 (0.00-0.10) 10*3/uL PT 10.0 (10.0-12.5) sec INR 0.9 (<1.2) APTT 23.8 (22.0-30.0) sec D-Dimer 0.44 (<0.60) mg/L FEU Sodium 140 (137-145) mmol/L Potassium 3.9 (3.5-5.1) mmol/L Chloride 110 H (98-107) mmol/L Carbon Dioxide 19 L (22-30) mmol/L Anion Gap 11 mmol/L BUN 14 (7-17) mg/dL Creatinine 0.74 (0.52-1.04) mg/dL Est GFR (CKD-EPI)AfAm >90 (>60 ml/min/1.73 sqM) Est GFR (CKD-EPI)NonAf >90 (>60 ml/min/1.73 sqM) Glucose 142 H (74-99) mg/dL Calcium 9.1 (8.4-10.2) mg/dL Magnesium 2.0 (1.6-2.3) mg/dL Total Bilirubin 0.5 (0.2-1.3) mg/dL AST 20 (14-36) U/L ALT 20 (4-34) U/L Alkaline Phosphatase 89 (38-126) U/L Troponin I (0.000-0.034) ng/mL NT-Pro-B Natriuret Pep <20 pg/mL Total Protein 6.6 (6.3-8.2) g/dL Albumin 4.0 (3.5-5.0) g/dL Influenza Type A (PCR) (Not Detectd) Influenza Type B (PCR) (Not Detectd) RSV (PCR) (Not Detectd) SARS-CoV-2 (PCR) (Not Detectd) 03/20/25 03/20/25 Range/Units 02:26 02:50 WBC (4.50-10.00) 10*3/uL RBC (4.10-5.20) 10*6/uL Hgb (12.0-15.0) g/dL Hct (37.2-46.3) % MCV (80.0-97.0) fL MCH (27.0-32.0) pg MCHC (32.0-37.0) g/dL Plt Count (140-440) 10*3/uL MPV (9.5-12.2) fL Immature Gran % (Auto) % Neutrophils % % Lymphocytes % % Monocytes % % Eosinophils % % Basophils % % Immature Gran # (0.00-0.04) 10*3/uL Neutrophils # (1.80-7.70) 10*3/uL Lymphocytes # (0.90-5.00) 10*3/uL Monocytes # (0.20-1.00) 10*3/uL Eosinophils # (0.04-0.35) 10*3/uL Basophils # (0.00-0.10) 10*3/uL PT (10.0-12.5) sec INR (<1.2) APTT (22.0-30.0) sec D-Dimer (<0.60) mg/L FEU Sodium (137-145) mmol/L Potassium (3.5-5.1) mmol/L Chloride (98-107) mmol/L Carbon Dioxide (22-30) mmol/L Anion Gap mmol/L BUN (7-17) mg/dL Creatinine (0.52-1.04) mg/dL Est GFR (CKD-EPI)AfAm (>60 ml/min/1.73 sqM) Est GFR (CKD-EPI)NonAf (>60 ml/min/1.73 sqM) Glucose (74-99) mg/dL Calcium (8.4-10.2) mg/dL Magnesium (1.6-2.3) mg/dL Total Bilirubin (0.2-1.3) mg/dL AST (14-36) U/L ALT (4-34) U/L Alkaline Phosphatase (38-126) U/L Troponin I <0.012 (0.000-0.034) ng/mL NT-Pro-B Natriuret Pep pg/mL Total Protein (6.3-8.2) g/dL Albumin (3.5-5.0) g/dL Influenza Type A (PCR) Not Detected (Not Detectd) Influenza Type B (PCR) Not Detected (Not Detectd) RSV (PCR) Not Detected (Not Detectd) SARS-CoV-2 (PCR) Not Detected (Not Detectd) - EKG Data -: EKG Interpreted by Me EKG Comments: 12-lead Electrocardiogram Interpretation Note EKG was reviewed and interpreted by myself. 12-lead ECG performed at 0216 is interpreted by me as revealing normal sinus rhythm at a rate of 86 beats per minute. [place] is normal. IN interval is 151 ms, QRS duration is 97 ms, QTc is 398 ms.. There were no ST or T wave abnormalities to suggest myocardial i schemia or injury. R wave progression across the precordium was satisfactory. By my interpretation this EKG is non-diagnostic for acute ischemia. Disposition Clinical Impression: Atypical chest pain Disposition: HOME SELF-CARE Condition: Good Additional Instructions: You presented with atypical chest pain today. Cardiopulmonary workup negative. Follow-up with your PCP outpatient in the next 1 to 3 days. Return to the ER for any concerning symptoms. Is patient prescribed a controlled substance at d/c from ED?: No Referrals: None,Stated [Primary Care Provider] - 1-2 days Forms: Area PCPs Time of Disposition: 03:57
[2025-03-20 04:10] VITALS: BP 126/77; PULSE 96; TEMP 98.4
--- NOTE | 2025-03-20 04:40 | XR ---
EXAM: XR Chest, 2 Views CLINICAL HISTORY: ITS.REASON XR Reason: Chest Pain TECHNIQUE: Frontal and lateral views of the chest. COMPARISON: No relevant prior studies available. FINDINGS: Lungs: No consolidation or mass. Pleural space: No effusion. Heart: No cardiomegaly. Bones/joints: No acute findings. IMPRESSION: No acute cardiopulmonary process.
== END 2025-03-20 04:50 | disposition home or self-care (01) ==
LOC: EC 01:45
DX: R07.89 Other chest pain (principal); Z86.718 Personal history of other venous thrombosis and embolism; F17.200 Nicotine dependence, unspecified, uncomplicated; Z88.8 Allergy status to other drugs, medicaments and biological substances
CPT/HCPCS: 36415; 93005; 85379; 83880; 80053; 83735; 84484; 85025; 85610; 85730; 87636; 71046; 99285; 96374; 96361; J1885

== ENCOUNTER 2025-04-08 15:54 | Emergency (ER) | payer BC ==
[2025-04-08] MEDS: IBUPROFEN 600 MG TAB PO STA (16:54)
[2025-04-08] MEDS: ONDANSETRON ODT 4 MG TAB PO STA (16:55)
[2025-04-08 17:06] LABS: Basophils # (A) 0.05 10*3/uL (0.00-0.10); Basophils % (A) 0.4 %; Eosinophils # (A) 0.06 10*3/uL (0.04-0.35); Eosinophils % (A) 0.5 %; HCT 39.8 % (37.2-46.3); HGB 13.8 g/dL (12.0-15.0); Lymphocytes # (A) 1.58 10*3/uL (0.90-5.00); Lymphocytes % (A) 12.9 %; MCH 30.2 pg (27.0-32.0); MCHC 34.7 g/dL (32.0-37.0); MCV 87.1 fL (80.0-97.0); Monocytes # (A) 0.52 10*3/uL (0.20-1.00); Monocytes % (A) 4.2 %; Neutrophils # (A) 10.02 10*3/uL (1.80-7.70); Neutrophils % (A) 81.6 %; Platelet Count 252 10*3/uL (140-440); RBC 4.57 10*6/uL (4.10-5.20); RDW 13.2 % (11.5-14.5); WBC 12.28 10*3/uL (4.50-10.00)
[2025-04-08 17:12] LABS: Bilirubin,Urine Negative (Negative); Blood,Urine Negative (Negative); Color,Urine Colorless; Glucose,Urine (UA) Negative (Negative); Ketones,Urine Negative (Negative); Leukocyte Esterase,Urine Negative (Negative); Nitrite,Urine Negative (Negative); PH, Urine 5.5 (5.0-8.0); Protein,Urine Negative (Negative); Specific Gravity,Urine 1.003 (1.001-1.035); Urobilinogen,Urine <2.0 mg/dL (<2.0)
[2025-04-08 17:20] LABS: ALT 25 U/L (4-34); AST 23 U/L (14-36); African American GFR (CKD) >90 (>60 ml/min/1.73 sqM); Albumin 3.9 g/dL (3.5-5.0); Alkaline Phosphatase 99 U/L (38-126); Anion Gap 7 mmol/L; Blood Urea Nitrogen 9 mg/dL (7-17); Calcium 9.0 mg/dL (8.4-10.2); Carbon Dioxide 26 mmol/L (22-30); Chloride 105 mmol/L (98-107); Glucose 115 mg/dL (74-99); Magnesium 1.9 mg/dL (1.6-2.3); Non-African American GFR(CKD) >90 (>60 ml/min/1.73 sqM); Potassium 3.8 mmol/L (3.5-5.1); Sodium 138 mmol/L (137-145); Total Protein 6.6 g/dL (6.3-8.2)
[2025-04-08 17:24] LABS: Urn Cannabinoid Scrn Not Detected (NotDetected)
[2025-04-08 17:25] LABS: Barbiturate Screen,Urine Not Detected (NotDetected); Benzodiazepines Screen,Urine Not Detected (NotDetected); Opiate Screen,Urine Not Detected (NotDetected); Oxycodone Screen, Urine Not Detected (NotDetected); Phencyclidine Screen,Urine Not Detected (NotDetected); Tricyclic Antidepressant,Urine Not Detected (NotDetected)
[2025-04-08 17:30] LABS: INR 0.9 (<1.2); Partial Thromboplastin Time 22.5 sec (22.0-30.0); Prothrombin Time 10.1 sec (10.0-12.5)
--- NOTE | 2025-04-08 18:04 | ED ---
Arrhythmia/Palpitations HPI - General Chief Complaint: Arrhythmia/Palpitations Stated Complaint: Fast Heart rate Time Seen by Provider: 04/08/25 16:10 Source: patient Mode of arrival: ambulatory Limitations: no limitations - History of Present Illness Initial Comments: 40-year-old female presenting with chief complaint of palpitations. Patient states that it felt like her heart was racing this evening. Started after she ate some food when she came home from work. She was also having some chest discomfort, shortness of breath, nausea. No lower extremity swelling, oral contraceptive use, recent surgery or travel. Patient does have history of DVT. No cough congestion or sore throat. Has followed with cardiology previously and has had similar symptoms in the past. - Related Data Previous Rx's Medication Instructions Recorded Omeprazole [PriLOSEC] 20 mg PO AC-BID #30 cap 04/08/25 Allergies Allergy/AdvReac Type Severity Reaction Status Date / Time atorvastatin [From Lipitor] Allergy Unknown Verified 04/08/25 16:46 [id number] Reductase Allergy Unknown Verified 04/08/25 16:46 Inhibitor Review of Systems ROS Statement: Those systems with pertinent positive or pertinent negative responses have been documented in the HPI. ROS Other: All systems not noted in ROS Statement are negative. Past Medical History Past Medical History: CVA/TIA, Deep Vein Thrombosis (DVT) Additional Past Medical History / Comment(s): hx of blood clot right lower leg. History of Any Multi-Drug Resistant Organisms: None Reported Past Surgical History: No Surgical Hx Reported Past Anesthesia/Blood Transfusion Reactions: No Reported Reaction Past Psychological History: Depression Smoking Status: Current some day smoker, Vaper Past Alcohol Use History: None Reported Past Drug Use History: None Reported General Exam Limitations: no limitations General appearance: alert, in no apparent distress Head exam: Present: atraumatic, normocephalic, normal inspection Eye exam: Present: normal appearance, EOMI. Absent: periorbital swelling Neck exam: Present: normal inspection. Absent: meningismus Respiratory exam: Present: normal lung sounds bilaterally. Absent: respiratory distress, wheezes, rales, rhonchi, stridor Cardiovascular Exam: Present: regular rate, normal rhythm, normal heart sounds. Absent: systolic murmur, diastolic murmur, rubs, gallop, clicks GI/Abdominal exam: Present: soft. Absent: distended, tenderness, guarding, rebound, rigid Extremities exam: Absent: pedal edema Neurological exam: Present: alert, oriented X3 Psychiatric exam: Present: normal affect, normal mood Skin exam: Present: warm, dry, normal color Course Vital Signs 04/08/25 04/08/25 04/08/25 15:57 16:11 18:23 Temperature 97.9 F 98.3 F Pulse Rate 121 H Pulse Rate [ 100 74 Internet E[employer]ist ] Respiratory 18 18 Rate Blood Pressure 128/80 Blood Pressure 112/69 [Right Arm Sitting] Blood Pressure 116/86 [Right Arm Standing] Blood Pressure 108/72 [Right Arm Supine] O2 Sat by Pulse 99 100 Oximetry 04/08/25 19:36 Temperature 98.8 F Pulse Rate 82 Pulse Rate [ [employer]ist ] Respiratory 17 Rate Blood Pressure 112/82 Blood Pressure [Right Arm Sitting] Blood Pressure [Right Arm Standing] Blood Pressure [Right Arm Supine] O2 Sat by Pulse 98 Oximetry Medical Decision Making - Medical Decision Making EKG shows sinus tachycardia ventricular rate 100. ND interval 128 QRS 93 QT 350 QTc 407 Was pt. sent in by a medical professional or institution (, PA, AP PROCESSOR, urgent care, hospital, or half-way...) When possible be specific @ -No Did you speak to anyone other than the patient for history (EMS, parent, family, police, friend...)? What history was obtained from this source @ -No Did you review nursing and triage notes (agree or disagree)? Why? @ -I reviewed and agree with nursing and triage notes Were old charts reviewed (outside hosp., previous admission, EMS record, old EKG, old radiological studies, urgent care reports/EKG's, half-way records)? Report findings @ -No old charts were reviewed Differential Diagnosis (chest pain, altered mental status, abdominal pain women, abdominal pain men, vaginal bleeding, weakness, fever, dyspnea, syncope, headache, dizziness, GI bleed, back pain, seizure, CVA, palpatations, mental health, musculoskeletal)? @ -Differential Palpitations Ventricular arrhythmias, atrial arrhythmias, myocardial infarction, anemia, thyrotoxicosis, electrolyte imbalance, hypokalemia, pulmonary embolism, pulmonary disease, drugs, alcohol, anxiety, stress.... This is not meant to be an all-inclusive list. EKG interpreted by me (3pts min.). @ -EKG shows sinus tachycardia ventricular rate 100. ND interval 128 QRS 93 QT 350 QTc 407 X-rays interpreted by me (1pt min.). @ -Chest x-ray shows no acute process CT interpreted by me (1pt min.). @ -None done U/S interpreted by me (1pt. min.). @ -None done What testing was considered but not performed or refused? (CT, X-rays, U/S, labs)? Why? @ -None What meds were considered but not given or refused? Why? @ -None Did you discuss the management of the patient with other professionals (radha restrepo i.e. , PA, AP PROCESSOR, lab, RT, psych nurse, mental health social worker, physician pediatrician, teacher, administrative hearing officer, watch case polisher)? Give summary @ -No Was smoking cessation discussed for >3mins.? @ -No Was critical care preformed (if so, how long)? @ -No Were there social determinants of health that impacted care today? How? (Homelessness, low income, unemployed, alcoholism, drug addiction, transportation, low edu. Level, literacy, decrease access to med. care, correction, rehab)? @ -No Was there de-escalation of care discussed even if they declined (Discuss DNR or withdrawal of care, Hospice)? DNR status @ -No What co-morbidities impacted this encounter? (DM, HTN, Smoking, COPD, CAD, Cancer, CVA, ARF, Chemo, Hep., AIDS, mental health diagnosis, sleep apnea, morbid obesity)? @ -None Was patient admitted / discharged? Hospital course, mention meds given and route, prescriptions, significant lab abnormalities, going to OR and other pertinent info. @ -40-year-old female presenting with chief complaint of palpitations. Has been seen here previously for similar complaints. History and physical examination are conducted. D-dimer 0.39. Negative troponin. TSH is WNL. Negative hCG. Negative urine toxicology. Remainder of lab work requires no immediate action. Chest x-ray shows no acute process EKG shows sinus tachycardia with rate of 100. On reassessment the patient is resting comfortably showing no acute signs of distress. She is educated on today's findings. She is instructed to follow-up with her PCP and reading specialist. She states that she is ready for discharge home. Follow-up with PCP. Report back to ER with any new or worsening symptoms. Discussed return parameters and answered all questions. Patient conveyed verbal understanding and agreed to the plan. I discussed this case in detail with my attending Dr. Andrews Undiagnosed new problem with uncertain prognosis? @ -No Drug Therapy requiring intensive monitoring for toxicity (Heparin, Nitro, Insulin, Cardizem)? @ -No Were any procedures done? @ -No Diagnosis/symptom? @ -Palpitations Acute, or Chronic, or Acute on Chronic? @ -Acute Uncomplicated (without systemic symptoms) or Complicated (systemic symptoms)? @ -Uncomplicated Side effects of treatment? @ -No Exacerbation, Progression, or Severe Exacerbation? @ -No Poses a threat to life or bodily function? How? (Chest pain, [place], [place], pneumonia, PE, COPD, DKA, ARF, appy, cholecystitis, CVA, Diverticulitis, Homicidal, Suicidal, threat to staff... and all critical care pts) @ -Unlikely - Lab Data Result diagrams: 04/08/25 17:00 04/08/25 17:00 Lab Results 04/08/25 04/08/25 04/08/25 Range/Units 17:00 17:00 17:00 WBC 12.28 H (4.50-10.00) 10*3/uL RBC 4.57 (4.10-5.20) 10*6/uL Hgb 13.8 (12.0-15.0) g/dL Hct 39.8 (37.2-46.3) % MCV 87.1 (80.0-97.0) fL MCH 30.2 (27.0-32.0) pg MCHC 34.7 (32.0-37.0) g/dL Plt Count 252 (140-440) 10*3/uL MPV 10.3 (9.5-12.2) fL Immature Gran % (Auto) 0.4 % Neutrophils % 81.6 % Lymphocytes % 12.9 % Monocytes % 4.2 % Eosinophils % 0.5 % Basophils % 0.4 % Immature Gran # 0.05 H (0.00-0.04) 10*3/uL Neutrophils # 10.02 H (1.80-7.70) 10*3/uL Lymphocytes # 1.58 (0.90-5.00) 10*3/uL Monocytes # 0.52 (0.20-1.00) 10*3/uL Eosinophils # 0.06 (0.04-0.35) 10*3/uL Basophils # 0.05 (0.00-0.10) 10*3/uL PT 10.1 (10.0-12.5) sec INR 0.9 (<1.2) APTT 22.5 (22.0-30.0) sec D-Dimer (<0.60) mg/L FEU Sodium (137-145) mmol/L Potassium (3.5-5.1) mmol/L Chloride (98-107) mmol/L Carbon Dioxide (22-30) mmol/L Anion Gap mmol/L BUN (7-17) mg/dL Creatinine (0.52-1.04) mg/dL Est GFR (CKD-EPI)AfAm (>60 ml/min/1.73 sqM) Est GFR (CKD-EPI)NonAf (>60 ml/min/1.73 sqM) Glucose (74-99) mg/dL Calcium (8.4-10.2) mg/dL Magnesium (1.6-2.3) mg/dL Total Bilirubin (0.2-1.3) mg/dL AST (14-36) U/L ALT (4-34) U/L Alkaline Phosphatase (38-126) U/L Troponin I (0.000-0.034) ng/mL Total Protein (6.3-8.2) g/dL Albumin (3.5-5.0) g/dL TSH (0.465-4.680) mIU/L Urine Color Colorless Urine Appearance Clear (Clear) Urine pH 5.5 (5.0-8.0) Ur Specific [place] 1.003 (1.001-1.035) Urine Protein Negative (Negative) Urine Glucose (UA) Negative (Negative) Urine Ketones Negative (Negative) Urine Blood Negative (Negative) Urine Nitrite Negative (Negative) Urine Bilirubin Negative (Negative) Urine Urobilinogen <2.0 (<2.0) mg/dL Ur Leukocyte Esterase Negative (Negative) Urine HCG, Qual (Not Detectd) Urine Opiates Screen Not Detected (NotDetected) Ur Oxycodone Screen Not Detected (NotDetected) Urine Methadone Screen Not Detected (NotDetected) Ur Barbiturates Screen Not Detected (NotDetected) U Tricyclic Antidepress Not Detected (NotDetected) Ur Phencyclidine Scrn Not Detected (NotDetected) Ur Amphetamines Screen Not Detected (NotDetected) U Methamphetamines Scrn Not Detected (NotDetected) U Benzodiazepines Scrn Not Detected (NotDetected) Urine Cocaine Screen Not Detected (NotDetected) U Marijuana (THC) Screen Not Detected (NotDetected) 04/08/25 04/08/25 04/08/25 Range/Units 17:00 17:00 17:00 WBC (4.50-10.00) 10*3/uL RBC (4.10-5.20) 10*6/uL Hgb (12.0-15.0) g/dL Hct (37.2-46.3) % MCV (80.0-97.0) fL MCH (27.0-32.0) pg MCHC (32.0-37.0) g/dL Plt Count (140-440) 10*3/uL MPV (9.5-12.2) fL Immature Gran % (Auto) % Neutrophils % % Lymphocytes % % Monocytes % % Eosinophils % % Basophils % % Immature Gran # (0.00-0.04) 10*3/uL Neutrophils # (1.80-7.70) 10*3/uL Lymphocytes # (0.90-5.00) 10*3/uL Monocytes # (0.20-1.00) 10*3/uL Eosinophils # (0.04-0.35) 10*3/uL Basophils # (0.00-0.10) 10*3/uL PT (10.0-12.5) sec INR (<1.2) APTT (22.0-30.0) sec D-Dimer (<0.60) mg/L FEU Sodium 138 (137-145) mmol/L Potassium 3.8 (3.5-5.1) mmol/L Chloride 105 (98-107) mmol/L Carbon Dioxide 26 (22-30) mmol/L Anion Gap 7 mmol/L BUN 9 (7-17) mg/dL Creatinine 0.68 (0.52-1.04) mg/dL Est GFR (CKD-EPI)AfAm >90 (>60 ml/min/1.73 sqM) Est GFR (CKD-EPI)NonAf >90 (>60 ml/min/1.73 sqM) Glucose 115 H (74-99) mg/dL Calcium 9.0 (8.4-10.2) mg/dL Magnesium 1.9 (1.6-2.3) mg/dL Total Bilirubin 0.6 (0.2-1.3) mg/dL AST 23 (14-36) U/L ALT 25 (4-34) U/L Alkaline Phosphatase 99 (38-126) U/L Troponin I <0.012 (0.000-0.034) ng/mL Total Protein 6.6 (6.3-8.2) g/dL Albumin 3.9 (3.5-5.0) g/dL TSH 1.700 (0.465-4.680) mIU/L Urine Color Urine Appearance (Clear) Urine pH (5.0-8.0) Ur Specific [place] (1.001-1.035) Urine Protein (Negative) Urine Glucose (UA) (Negative) Urine Ketones (Negative) Urine Blood (Negative) Urine Nitrite (Negative) Urine Bilirubin (Negative) Urine Urobilinogen (<2.0) mg/dL Ur Leukocyte Esterase (Negative) Urine HCG, Qual Not Detected (Not Detectd) Urine Opiates Screen (NotDetected) Ur Oxycodone Screen (NotDetected) Urine Methadone Screen (NotDetected) Ur Barbiturates Screen (NotDetected) U Tricyclic Antidepress (NotDetected) Ur Phencyclidine Scrn (NotDetected) Ur Amphetamines Screen (NotDetected) U Methamphetamines Scrn (NotDetected) U Benzodiazepines Scrn (NotDetected) Urine Cocaine Screen (NotDetected) U Marijuana (THC) Screen (NotDetected) 04/08/25 Range/Units 18:11 WBC (4.50-10.00) 10*3/uL RBC (4.10-5.20) 10*6/uL Hgb (12.0-15.0) g/dL Hct (37.2-46.3) % MCV (80.0-97.0) fL MCH (27.0-32.0) pg MCHC (32.0-37.0) g/dL Plt Count (140-440) 10*3/uL MPV (9.5-12.2) fL Immature Gran % (Auto) % Neutrophils % % Lymphocytes % % Monocytes % % Eosinophils % % Basophils % % Immature Gran # (0.00-0.04) 10*3/uL Neutrophils # (1.80-7.70) 10*3/uL Lymphocytes # (0.90-5.00) 10*3/uL Monocytes # (0.20-1.00) 10*3/uL Eosinophils # (0.04-0.35) 10*3/uL Basophils # (0.00-0.10) 10*3/uL PT (10.0-12.5) sec INR (<1.2) APTT (22.0-30.0) sec D-Dimer 0.39 (<0.60) mg/L FEU Sodium (137-145) mmol/L Potassium (3.5-5.1) mmol/L Chloride (98-107) mmol/L Carbon Dioxide (22-30) mmol/L Anion Gap mmol/L BUN (7-17) mg/dL Creatinine (0.52-1.04) mg/dL Est GFR (CKD-EPI)AfAm (>60 ml/min/1.73 sqM) Est GFR (CKD-EPI)NonAf (>60 ml/min/1.73 sqM) Glucose (74-99) mg/dL Calcium (8.4-10.2) mg/dL Magnesium (1.6-2.3) mg/dL Total Bilirubin (0.2-1.3) mg/dL AST (14-36) U/L ALT (4-34) U/L Alkaline Phosphatase (38-126) U/L Troponin I (0.000-0.034) ng/mL Total Protein (6.3-8.2) g/dL Albumin (3.5-5.0) g/dL TSH (0.465-4.680) mIU/L Urine Color Urine Appearance (Clear) Urine pH (5.0-8.0) Ur Specific [place] (1.001-1.035) Urine Protein (Negative) Urine Glucose (UA) (Negative) Urine Ketones (Negative) Urine Blood (Negative) Urine Nitrite (Negative) Urine Bilirubin (Negative) Urine Urobilinogen (<2.0) mg/dL Ur Leukocyte Esterase (Negative) Urine HCG, Qual (Not Detectd) Urine Opiates Screen (NotDetected) Ur Oxycodone Screen (NotDetected) Urine Methadone Screen (NotDetected) Ur Barbiturates Screen (NotDetected) U Tricyclic Antidepress (NotDetected) Ur Phencyclidine Scrn (NotDetected) Ur Amphetamines Screen (NotDetected) U Methamphetamines Scrn (NotDetected) U Benzodiazepines Scrn (NotDetected) Urine Cocaine Screen (NotDetected) U Marijuana (THC) Screen (NotDetected) Disposition Clinical Impression: Palpitations Disposition: HOME SELF-CARE Condition: Good Instructions (If sedation given, give patient instructions): Heart Palpitations (ED) Additional Instructions: Follow-up with PCP and reading specialist. Report back to ER with any new or worsening symptoms. Prescriptions: Omeprazole [PriLOSEC] 20 mg PO AC-BID #30 cap Is patient prescribed a controlled substance at d/c from ED?: No Referrals: Cirilo Scales MD [Primary Care Provider] - 1-2 days [facility] [Provider Group] - 1-2 days Time of Disposition: 19:33
[2025-04-08 19:41] VITALS: BP 112/82; PULSE 82; RESP 17; TEMP 98.8
--- NOTE | 2025-04-08 19:43 | XR ---
EXAMINATION TYPE: XR chest 2V DATE OF EXAM: 04/08/2025 5:05 PM COMPARISON: Chest radiograph 03/20/2025. CLINICAL INDICATION: Female, 40 years old with history of dysrhythmia; [facility] TECHNIQUE: XR chest 2V Frontal and lateral views of the chest. FINDINGS: Lungs/Pleura: There is no evidence of pleural effusion, focal consolidation, or pneumothorax. Pulmonary vascularity: Unremarkable. Heart/mediastinum: Cardiomediastinal silhouette is unremarkable. Musculoskeletal: No acute osseous pathology. IMPRESSION: No acute cardiopulmonary disease/process. [facility], , 04/08/2025 7:41 PM
== END 2025-04-08 19:41 | disposition home or self-care (01) ==
LOC: EC 15:54
DX: R00.2 Palpitations (principal); F17.290 Nicotine dependence, other tobacco product, uncomplicated; Z88.8 Allergy status to other drugs, medicaments and biological substances
CPT/HCPCS: 36415; 71046; 80053; 80306; 81003; 81025; 83735; 84443; 84484; 85025; 85379; 85610; 85730; 93005; 99285